=== PATIENT | female | born 1950 | race Native Hawaiian/Other Pacific Islander ===

== ENCOUNTER 2016-04-29 07:30 | Outpatient (CLI) | payer OTHER | END 2016-04-29 07:31 | disposition home or self-care (01) | DX: Z00.00 Encounter for general adult medical examination without abnormal findings (principal) ==

== ENCOUNTER 2016-09-28 08:01 | Outpatient (CLI) | payer OTHER ==
[2016-09-28 13:24] LABS: CREATININE 0.7 mg/dL (0.4-1.0); POTASSIUM 3.4 mmol/L (3.5-5.0)
[2016-09-28 13:37] LABS: HEMOGLOBIN A1C 0.87 g/dL
== END 2016-09-28 08:02 | disposition home or self-care (01) ==
LOC: LAB.WCP 08:01
PROVIDERS: ATTEND Family Medicine
DX: E87.6 Hypokalemia (principal)
CPT/HCPCS: 36415; 80048; 83036

== ENCOUNTER 2016-12-09 08:15 | Outpatient (CLI) | payer OTHER | END 2016-12-09 08:16 | disposition home or self-care (01) | LOC: LAB.WCP 08:15 | PROVIDERS: ATTEND Family Medicine | DX: E11.65 Type 2 diabetes mellitus with hyperglycemia (principal); E55.9 Vitamin D deficiency, unspecified; E78.5 Hyperlipidemia, unspecified | CPT/HCPCS: 36415; 82306; 83036 ==

== ENCOUNTER 2017-01-25 09:43 | Outpatient (CLI) | payer MEDICARE, OTHER | END 2017-01-25 09:44 | disposition home or self-care (01) | LOC: SC 09:43 | PROVIDERS: ATTEND Internal Medicine Pulmonary Disease | DX: G47.33 Obstructive sleep apnea (adult) (pediatric) (principal) | CPT/HCPCS: 99212; 99213 ==

== ENCOUNTER 2017-01-27 10:02 | Outpatient (CLI) | payer OTHER, MEDICARE ==
--- NOTE | 2017-01-28 17:19 | Mammography Report ---
DIGITAL SCREENING MAMMOGRAM: 01/27/2017 CLINICAL INDICATION: A 66-year-old for screening. COMPARISON: 01/2016, 12/2014, 11/2013, 09/2012, 08/2012, 12/2010, 11/2009. TECHNIQUE: Routine CC and MLO projections were obtained of the breasts. The breasts again demonstrate heterogeneously dense fibroglandular parenchyma bilaterally. Coarse an d punctate, typically benign calcifications are present. No suspicious masses, clustered microcalcif ications, or regions of architectural distortion are identified. IMPRESSION: BENIGN FINDINGS. RECOMMENDATION: ROUTINE ANNUAL SCREENING UNLESS OTHERWISE CLINICALLY INDICATED. BIRADS CATEGORY: 2, BENIGN FINDINGS. STANDARD QUALIFYING STATEMENTS 1. This examination was reviewed with the aid of Computed-Aided Detection (CAD). 2. A negative or benign imaging report should not delay biopsy if clinically suspicious findings are present. Consider surgical consultation if warranted. More than 5% of cancers are not identified b y imaging. 3. Dense breasts may obscure an underlying neoplasm. JOB #: [id number] EXT JOB #:[id number]
== END 2017-01-27 10:03 | disposition home or self-care (01) ==
LOC: DI.N 10:02
PROVIDERS: ATTEND Physician Assistant Medical
DX: Z12.31 Encounter for screening mammogram for malignant neoplasm of breast (principal)
CPT/HCPCS: 77067

== ENCOUNTER → 2017-03-15 | Outpatient (CLI) | payer MEDICARE, OTHER ==
[2017-03-15 12:43] LABS: BASOPHILS % (AUTO) 0.6 %; EOSINOPHILS # (AUTO) 0.5 10^3/uL (0.0-0.7); EOSINOPHILS % (AUTO) 6.2 %; HCT - HEMATOCRIT 35.2 % (37.0-47.0); HGB - HEMOGLOBIN 11.3 g/dL (12.0-16.0); LYMPHOCYTES # (AUTO) 1.9 10^3/uL (1.5-3.5); MEAN CORPUSCULAR HEMOGLOBIN 21.4 pg (27.0-31.0); MEAN CORPUSCULAR HGB CONC 32.2 g/dL (32.0-36.0); MEAN CORPUSCULAR VOLUME 66.4 fL (81.0-99.0); MEAN PLATELET VOLUME 9.9 fL (7.9-10.8); MONOCYTES # (AUTO) 0.6 10^3/uL (0.0-1.0); MONOCYTES % (AUTO) 8.3 %; NEUTROPHILS # (AUTO) 4.3 10^3/uL (1.5-6.6); NEUTROPHILS % (AUTO) 58.9 %; RED CELL DISTRIBUTION WIDTH 14.4 % (12.0-15.0); UNCORRECTED WHITE BLOOD COUNT 7.4 x10^3/uL; WHITE BLOOD COUNT 7.4 x10^3/uL (4.8-10.8)
[2017-03-15 12:53] LABS: SLIDE SENT FOR PATH REVIEW? Indicated
[2017-03-15 13:02] LABS: ALBUMIN/GLOBULIN RATIO 1.4 (1.0-2.2); BILIRUBIN,TOTAL 0.5 mg/dL (0.2-1.0); BUN - BLOOD UREA NITROGEN 15 mg/dL (6-20); CARBON DIOXIDE - CO2 27 mmol/L (21-32); CHLORIDE 100 mmol/L (101-111); CHOL/HDL RATIO 2.7 (<4.4); CHOLESTEROL 134 mg/dL; CREATININE 0.6 mg/dL (0.4-1.0); GFR - MDRD 100 (>89); GLUCOSE 92 mg/dL (70-100); HDL CHOLESTEROL 50 mg/dL; LDL/HDL RATIO 1.2 (<4.4); SODIUM 137 mmol/L (135-145); TOTAL PROTEIN 6.7 g/dL (6.7-8.2); TRIGLYCERIDES 125 mg/dL; VLDL CHOLESTEROL 25 mg/dL
[2017-03-15 13:18] LABS: HEMOGLOBIN A1C 0.66 g/dL
[2017-03-15 13:34] LABS: PLATELET ESTIMATE, MANUAL NORMAL (130-450,000) (NORMAL); PLATELET MORPHOLOGY NORMAL APPEARANCE (NORMAL)
[2017-03-15 13:36] LABS: CBC SPECIMEN NUMBER 778316; PATHOLOGIST REVIEW ORDER PATH SLIDE REVIEW
== END ==
LOC: LAB.N 08:00
PROVIDERS: ATTEND Physician Assistant Medical
DX: E78.5 Hyperlipidemia, unspecified (principal); E11.65 Type 2 diabetes mellitus with hyperglycemia; Z51.81 Encounter for therapeutic drug level monitoring; Z79.899 Other long term (current) drug therapy
CPT/HCPCS: 36415; 80053; 80061; 82043; 83036; 84443; 85025

== ENCOUNTER 2017-03-24 11:10 | Outpatient (CLI) | payer MEDICARE, OTHER ==
[2017-03-24 19:36] LABS: CALCIUM 9.6 mg/dL (8.5-10.3); CREATININE 0.5 mg/dL (0.4-1.0); MAGNESIUM 1.7 mg/dL (1.7-2.8); POTASSIUM 3.3 mmol/L (3.5-5.0)
== END 2017-03-24 11:11 ==
LOC: LAB.WCP 11:10
PROVIDERS: ATTEND Physician Assistant Medical
DX: E87.6 Hypokalemia (principal)
CPT/HCPCS: 36415; 80048; 83735

== ENCOUNTER 2017-06-14 17:14 | Outpatient (CLI) | payer MEDICARE, OTHER ==
[2017-06-14 13:17] LABS: HEMOGLOBIN A1C 0.69 g/dL; HEMOGLOBIN A1C % 6.7 % (4.6-6.2)
[2017-06-14 13:22] LABS: ALBUMIN 4.1 g/dL (3.2-5.5); ALBUMIN/GLOBULIN RATIO 1.2 (1.0-2.2); ALKALINE PHOSPHATASE 65 IU/L (42-121); ALT ALANINE AMINOTRANSFERASE 15 IU/L (10-60); AST ASPARTATE AMINOTRANSFERASE 24 IU/L (10-42); BILIRUBIN,TOTAL 0.4 mg/dL (0.2-1.0); BUN - BLOOD UREA NITROGEN 12 mg/dL (6-20); CALCIUM 9.3 mg/dL (8.5-10.3); CARBON DIOXIDE - CO2 29 mmol/L (21-32); CHLORIDE 97 mmol/L (101-111); CHOL/HDL RATIO 3.4 (<4.4); CHOLESTEROL 171 mg/dL; CREATININE 0.6 mg/dL (0.4-1.0); GFR - MDRD 100 (>89); GLUCOSE 156 mg/dL (70-100); HDL CHOLESTEROL 50 mg/dL; LDL CHOLESTEROL,CALCULATED 84 mg/dL; LDL/HDL RATIO 1.7 (<4.4); SODIUM 138 mmol/L (135-145); TOTAL PROTEIN 7.5 g/dL (6.7-8.2); VLDL CHOLESTEROL 37 mg/dL
== END 2017-06-14 17:15 | disposition home or self-care (01) ==
LOC: LAB.N 17:14
PROVIDERS: ATTEND Physician Assistant Medical
DX: E78.5 Hyperlipidemia, unspecified (principal); E11.9 Type 2 diabetes mellitus without complications; Z51.81 Encounter for therapeutic drug level monitoring; Z79.899 Other long term (current) drug therapy
CPT/HCPCS: 36415; 80053; 80061; 83036; 83721

== ENCOUNTER 2017-10-07 08:09 | Outpatient (CLI) | payer MEDICARE, OTHER ==
[2017-10-07 12:37] LABS: ALBUMIN 3.8 g/dL (3.2-5.5); ALBUMIN/GLOBULIN RATIO 1.1 (1.0-2.2); ALKALINE PHOSPHATASE 69 IU/L (42-121); ALT ALANINE AMINOTRANSFERASE 25 IU/L (10-60); AST ASPARTATE AMINOTRANSFERASE 25 IU/L (10-42); BILIRUBIN,TOTAL 0.6 mg/dL (0.2-1.0); BUN - BLOOD UREA NITROGEN 23 mg/dL (6-20); CARBON DIOXIDE - CO2 30 mmol/L (21-32); CHLORIDE 97 mmol/L (101-111); CHOL/HDL RATIO 2.9 (<4.4); CHOLESTEROL 174 mg/dL; CREATININE 0.7 mg/dL (0.4-1.0); GFR - MDRD 84 (>89); GLUCOSE 141 mg/dL (70-100); HDL CHOLESTEROL 60 mg/dL; LDL CHOLESTEROL,CALCULATED 85 mg/dL; LDL/HDL RATIO 1.4 (<4.4); SODIUM 136 mmol/L (135-145); TOTAL PROTEIN 7.3 g/dL (6.7-8.2); VLDL CHOLESTEROL 29 mg/dL
[2017-10-07 12:50] LABS: HB2 TOTAL 13.3 g/dL; HEMOGLOBIN A1C 0.63 g/dL; HEMOGLOBIN A1C % 6.5 % (4.6-6.2)
== END 2017-10-07 23:59 | disposition home or self-care (01) ==
LOC: LAB.WCP 08:09
PROVIDERS: ATTEND Family Medicine
DX: E11.9 Type 2 diabetes mellitus without complications (principal); E78.5 Hyperlipidemia, unspecified
CPT/HCPCS: 36415; 80053; 80061; 83036; 83721; 84443

== ENCOUNTER 2018-01-04 08:00 | Outpatient (CLI) | payer MEDICARE, OTHER ==
[2018-01-04 13:39] LABS: ALBUMIN 3.7 g/dL (3.2-5.5); ALBUMIN/GLOBULIN RATIO 1.4 (1.0-2.2); ALKALINE PHOSPHATASE 79 IU/L (42-121); ALT ALANINE AMINOTRANSFERASE 55 IU/L (10-60); AST ASPARTATE AMINOTRANSFERASE 36 IU/L (10-42); BILIRUBIN,TOTAL 0.7 mg/dL (0.2-1.0); BUN - BLOOD UREA NITROGEN 20 mg/dL (6-20); CALCIUM 8.9 mg/dL (8.5-10.3); CARBON DIOXIDE - CO2 27 mmol/L (21-32); CHLORIDE 101 mmol/L (101-111); CHOL/HDL RATIO 3.3 (<4.4); CHOLESTEROL 180 mg/dL; CREATININE 0.6 mg/dL (0.4-1.0); GFR - MDRD 100 (>89); GLUCOSE 172 mg/dL (70-100); HDL CHOLESTEROL 54 mg/dL; LDL CHOLESTEROL,CALCULATED 96 mg/dL; LDL/HDL RATIO 1.8 (<4.4); SODIUM 138 mmol/L (135-145); TOTAL PROTEIN 6.4 g/dL (6.7-8.2); VLDL CHOLESTEROL 30 mg/dL
[2018-01-04 13:40] LABS: HB2 TOTAL 12.8 g/dL; HEMOGLOBIN A1C 0.67 g/dL; HEMOGLOBIN A1C % 6.9 % (4.6-6.2)
[2018-01-04 13:51] LABS: BASOPHILS # (AUTO) 0.1 10^3/uL (0.0-0.1); BASOPHILS % (AUTO) 0.8 %; EOSINOPHILS # (AUTO) 0.5 10^3/uL (0.0-0.7); EOSINOPHILS % (AUTO) 6.2 %; HGB - HEMOGLOBIN 11.8 g/dL (12.0-16.0); LYMPHOCYTES # (AUTO) 2.3 10^3/uL (1.5-3.5); LYMPHOCYTES % (AUTO) 28.3 %; MEAN CORPUSCULAR HEMOGLOBIN 21.4 pg (27.0-31.0); MEAN CORPUSCULAR HGB CONC 32.1 g/dL (32.0-36.0); MEAN CORPUSCULAR VOLUME 66.6 fL (81.0-99.0); MEAN PLATELET VOLUME 10.4 fL (7.9-10.8); MONOCYTES # (AUTO) 0.6 10^3/uL (0.0-1.0); MONOCYTES % (AUTO) 7.6 %; NEUTROPHILS # (AUTO) 4.6 10^3/uL (1.5-6.6); NEUTROPHILS % (AUTO) 57.1 %; PLT - PLATELET COUNT 225 10^3/uL (130-450); RED BLOOD COUNT 5.55 10^6/uL (4.20-5.40); RED CELL DISTRIBUTION WIDTH 14.5 % (12.0-15.0)
[2018-01-04 14:41] LABS: PLATELET MORPHOLOGY RARE GIANT PLATELETS (NORMAL)
== END 2018-01-04 08:01 | disposition home or self-care (01) ==
LOC: LAB.WCP 08:00
PROVIDERS: ATTEND Family Medicine
DX: E87.6 Hypokalemia (principal); E11.9 Type 2 diabetes mellitus without complications; I10 Essential (primary) hypertension; E78.5 Hyperlipidemia, unspecified
CPT/HCPCS: 36415; 80053; 80061; 83036; 83721; 85025

== ENCOUNTER 2018-02-22 10:04 | Outpatient (CLI) | payer MEDICARE, OTHER ==
--- NOTE | 2018-02-24 11:52 | Mammography Report ---
Reason: SCREENING MAMMO Procedure Date: 02/22/2018 Accession Number: [id number] / [id number] Procedure: MGN - Screening Mammo Dig Bilat CPT Code: FULL RESULT: EXAM: Screening Mammo Dig Bilat DATE: 02/22/2018 10:29 AM CLINICAL HISTORY: 67-year-old female with personal history of early menses and cervical cancer status post hysterectomy and chemoradiation. TECHNIQUE: Bilateral CC and MLO views were obtained. COMPARISON: 01/27/2017, 02/10/2016, 12/26/2014, 12/11/2013. FINDINGS: The breasts demonstrate heterogeneously dense fibroglandular parenchyma bilaterally. Coarse typically benign calcifications are again seen. No suspicious masses, clustered microcalcifications, or regions of architectural distortion are identified. IMPRESSION: Benign findings RECOMMENDATION: Routine annual screening unless otherwise clinically indicated. BIRADS CATEGORY 2: Benign findings STANDARD QUALIFYING STATEMENTS: 1. This examination was reviewed with the aid of Computer-Aided Detection (CAD). 2. A negative or benign imaging report should not delay biopsy if clinically suspicious findings are present. Consider surgical consultation if warrented. More than 5% of cancers are not identified by imaging. 3. Dense breasts may obscure an underlying neoplasm. 4. This examination was reviewed without the aid of 3D breast imaging (tomosynthesis).
== END 2018-02-22 10:05 | disposition home or self-care (01) ==
LOC: DI.N 10:04
DX: Z12.31 Encounter for screening mammogram for malignant neoplasm of breast (principal)
CPT/HCPCS: 77067

== ENCOUNTER 2018-02-22 14:53 | Outpatient (CLI) | payer MEDICARE, OTHER | END 2018-02-22 14:54 | disposition home or self-care (01) | LOC: SC 14:53 | PROVIDERS: ATTEND Nurse Practitioner Family | DX: G47.33 Obstructive sleep apnea (adult) (pediatric) (principal) | CPT/HCPCS: 99214; G0463; 99212 ==

== ENCOUNTER 2018-04-04 10:16 | Outpatient (CLI) | payer MEDICARE, OTHER ==
[2018-04-04 13:51] LABS: ALBUMIN/GLOBULIN RATIO 1.2 (1.0-2.2); ALKALINE PHOSPHATASE 74 IU/L (42-121); ALT ALANINE AMINOTRANSFERASE 39 IU/L (10-60); AST ASPARTATE AMINOTRANSFERASE 32 IU/L (10-42); BILIRUBIN,TOTAL 0.9 mg/dL (0.2-1.0); BUN - BLOOD UREA NITROGEN 15 mg/dL (6-20); CALCIUM 9.2 mg/dL (8.5-10.3); CARBON DIOXIDE - CO2 29 mmol/L (21-32); CHLORIDE 100 mmol/L (101-111); CHOL/HDL RATIO 2.9 (<4.4); CHOLESTEROL 166 mg/dL; CREATININE 0.7 mg/dL (0.4-1.0); GFR - MDRD 84 (>89); GLUCOSE 141 mg/dL (70-100); HDL CHOLESTEROL 57 mg/dL; LDL CHOLESTEROL,CALCULATED 79 mg/dL; LDL/HDL RATIO 1.4 (<4.4); SODIUM 137 mmol/L (135-145); TOTAL PROTEIN 7.3 g/dL (6.7-8.2); VLDL CHOLESTEROL 30 mg/dL
[2018-04-04 14:05] LABS: HB2 TOTAL 12.4 g/dL; HEMOGLOBIN A1C 0.7 g/dL; HEMOGLOBIN A1C % 7.3 % (4.6-6.2)
== END 2018-04-04 23:59 | disposition home or self-care (01) ==
LOC: LAB.WCP 10:16
PROVIDERS: ATTEND Family Medicine
DX: E87.6 Hypokalemia (principal); E11.9 Type 2 diabetes mellitus without complications; E78.5 Hyperlipidemia, unspecified
CPT/HCPCS: 36415; 80053; 80061; 83036; 83721

== ENCOUNTER 2018-07-04 08:00 | Outpatient (CLI) | payer MEDICARE, OTHER ==
[2018-07-04 13:28] LABS: BASOPHILS # (AUTO) 0.1 10^3/uL (0.0-0.1); BASOPHILS % (AUTO) 0.6 %; EOSINOPHILS # (AUTO) 0.6 10^3/uL (0.0-0.7); EOSINOPHILS % (AUTO) 7.5 %; HGB - HEMOGLOBIN 12.4 g/dL (12.0-16.0); LYMPHOCYTES # (AUTO) 2.1 10^3/uL (1.5-3.5); LYMPHOCYTES % (AUTO) 24.3 %; MEAN CORPUSCULAR HEMOGLOBIN 21.1 pg (27.0-31.0); MEAN CORPUSCULAR HGB CONC 31.5 g/dL (32.0-36.0); MEAN CORPUSCULAR VOLUME 66.8 fL (81.0-99.0); MEAN PLATELET VOLUME 10.3 fL (7.9-10.8); MONOCYTES # (AUTO) 0.7 10^3/uL (0.0-1.0); MONOCYTES % (AUTO) 8.2 %; NEUTROPHILS # (AUTO) 5.1 10^3/uL (1.5-6.6); NEUTROPHILS % (AUTO) 59.4 %; PLT - PLATELET COUNT 230 10^3/uL (130-450); RED BLOOD COUNT 5.89 10^6/uL (4.20-5.40); RED CELL DISTRIBUTION WIDTH 14.1 % (12.0-15.0); WHITE BLOOD COUNT 8.6 x10^3/uL (4.8-10.8)
[2018-07-04 13:45] LABS: ALBUMIN 4.2 g/dL (3.2-5.5); ALBUMIN/GLOBULIN RATIO 1.4 (1.0-2.2); ALKALINE PHOSPHATASE 86 IU/L (42-121); ALT ALANINE AMINOTRANSFERASE 43 IU/L (10-60); AST ASPARTATE AMINOTRANSFERASE 33 IU/L (10-42); BILIRUBIN,TOTAL 0.7 mg/dL (0.2-1.0); BUN - BLOOD UREA NITROGEN 23 mg/dL (6-20); CALCIUM 9.4 mg/dL (8.5-10.3); CARBON DIOXIDE - CO2 30 mmol/L (21-32); CHLORIDE 99 mmol/L (101-111); CHOLESTEROL 182 mg/dL; CREATININE 0.6 mg/dL (0.4-1.0); GFR - MDRD 100 (>89); GLUCOSE 184 mg/dL (70-100); HDL CHOLESTEROL 60 mg/dL; LDL CHOLESTEROL,CALCULATED 91 mg/dL; LDL/HDL RATIO 1.5 (<4.4); SODIUM 140 mmol/L (135-145); TOTAL PROTEIN 7.3 g/dL (6.7-8.2); VLDL CHOLESTEROL 31 mg/dL
[2018-07-04 14:20] LABS: HB2 TOTAL 13.8 g/dL; HEMOGLOBIN A1C 0.85 g/dL; HEMOGLOBIN A1C % 7.8 % (4.6-6.2)
== END 2018-07-04 23:59 | disposition home or self-care (01) ==
LOC: LAB.WCP 08:00
PROVIDERS: ATTEND Family Medicine
DX: E87.6 Hypokalemia (principal); E78.5 Hyperlipidemia, unspecified; E11.9 Type 2 diabetes mellitus without complications; F32.9 Major depressive disorder, single episode, unspecified; D56.3 Thalassemia minor
CPT/HCPCS: 36415; 80053; 80061; 82043; 83036; 83721; 84443; 85025

== ENCOUNTER 2018-07-29 08:00 | Outpatient (CLI) | payer MEDICARE, OTHER ==
[2018-07-29 13:07] LABS: CALCIUM 9.2 mg/dL (8.5-10.3); CREATININE 0.7 mg/dL (0.4-1.0)
== END 2018-07-29 23:59 | disposition home or self-care (01) ==
LOC: LAB.WCP 08:00
PROVIDERS: ATTEND Family Medicine
DX: E87.6 Hypokalemia (principal)
CPT/HCPCS: 36415; 80048

== ENCOUNTER 2018-10-06 08:24 | Outpatient (CLI) | payer MEDICARE, OTHER ==
[2018-10-06 14:28] LABS: ALBUMIN 3.9 g/dL (3.2-5.5); ALBUMIN/GLOBULIN RATIO 1.3 (1.0-2.2); ALKALINE PHOSPHATASE 70 IU/L (42-121); ALT ALANINE AMINOTRANSFERASE 44 IU/L (10-60); AST ASPARTATE AMINOTRANSFERASE 35 IU/L (10-42); BILIRUBIN,TOTAL 0.9 mg/dL (0.2-1.0); BUN - BLOOD UREA NITROGEN 17 mg/dL (6-20); CALCIUM 9.1 mg/dL (8.5-10.3); CARBON DIOXIDE - CO2 26 mmol/L (21-32); CHLORIDE 102 mmol/L (101-111); CHOL/HDL RATIO 3.3 (<4.4); CHOLESTEROL 171 mg/dL; CREATININE 0.7 mg/dL (0.4-1.0); GFR - MDRD 83 (>89); GLUCOSE 172 mg/dL (70-100); HDL CHOLESTEROL 52 mg/dL; LDL CHOLESTEROL,CALCULATED 83 mg/dL; LDL/HDL RATIO 1.6 (<4.4); SODIUM 141 mmol/L (135-145); TOTAL PROTEIN 6.9 g/dL (6.7-8.2); VLDL CHOLESTEROL 36 mg/dL
== END 2018-10-06 08:25 | disposition home or self-care (01) ==
LOC: LAB.WCP 08:24
PROVIDERS: ATTEND Family Medicine
DX: E11.9 Type 2 diabetes mellitus without complications (principal)
CPT/HCPCS: 36415; 80053; 80061; 81599; 83036; 83721

== ENCOUNTER 2018-12-27 08:00 | Outpatient (CLI) | payer MEDICARE, OTHER ==
[2018-12-27 12:35] LABS: BASOPHILS # (AUTO) 0.1 10^3/uL (0.0-0.1); BASOPHILS % (AUTO) 0.9 %; EOSINOPHILS # (AUTO) 0.6 10^3/uL (0.0-0.7); EOSINOPHILS % (AUTO) 6.5 %; HGB - HEMOGLOBIN 11.5 g/dL (12.0-16.0); LYMPHOCYTES # (AUTO) 2.7 10^3/uL (1.5-3.5); LYMPHOCYTES % (AUTO) 28.2 %; MEAN CORPUSCULAR HEMOGLOBIN 20.7 pg (27.0-31.0); MEAN CORPUSCULAR VOLUME 68.9 fL (81.0-99.0); MEAN PLATELET VOLUME 12.5 fL (7.9-10.8); MONOCYTES # (AUTO) 0.8 10^3/uL (0.0-1.0); MONOCYTES % (AUTO) 8.1 %; NEUTROPHILS # (AUTO) 5.2 10^3/uL (1.5-6.6); NEUTROPHILS % (AUTO) 55.8 %; PLT - PLATELET COUNT 220 10^3/uL (130-450); RED BLOOD COUNT 5.56 10^6/uL (4.20-5.40); RED CELL DISTRIBUTION WIDTH 14.7 % (12.0-15.0); WHITE BLOOD COUNT 9.4 x10^3/uL (4.8-10.8)
[2018-12-27 12:52] LABS: CHOL/HDL RATIO 2.9 (<4.4); CHOLESTEROL 153 mg/dL; HDL CHOLESTEROL 52 mg/dL; LDL CHOLESTEROL,CALCULATED 72 mg/dL; LDL/HDL RATIO 1.4 (<4.4); VLDL CHOLESTEROL 29 mg/dL
[2018-12-27 14:52] LABS: HB2 TOTAL 11.8 g/dL; HEMOGLOBIN A1C 0.72 g/dL; HEMOGLOBIN A1C % 7.7 % (4.6-6.2)
== END 2018-12-27 23:59 | disposition home or self-care (01) ==
LOC: LAB.WCP 08:00
PROVIDERS: ATTEND Family Medicine
DX: E78.5 Hyperlipidemia, unspecified (principal); E11.9 Type 2 diabetes mellitus without complications; D56.3 Thalassemia minor
CPT/HCPCS: 36415; 80061; 83036; 83721; 85025

== ENCOUNTER 2019-02-07 14:21 | Outpatient (CLI) | payer MEDICARE, OTHER ==
--- NOTE | 2019-02-08 08:22 | Mammography Report ---
Reason: ROUTINE MAMMO Procedure Date: 02/07/2019 Accession Number: [id number] / [id number] Procedure: MGN - Screening Mammo Dig Bilat CPT Code: FULL RESULT: EXAM: Screening Mammo Dig Bilat DATE: 02/07/2019 2:43 PM CLINICAL HISTORY: Screening encounter. History of early menses. TECHNIQUE: (B) - Bilateral CC and MLO views were obtained. Left laterally exaggerated CC views obtained. COMPARISON: 02/22/2018 through 12/20/2009. PARENCHYMAL PATTERN: (D) - The breast(s) demonstrate(s) heterogeneously dense fibroglandular parenchyma. FINDINGS: There are coarse typically benign calcifications. There are no suspicious masses, calcifications, or areas of distortion. IMPRESSION: Benign findings. BI-RADS category 2. RECOMMENDATION: (ANNUAL) - Recommend routine annual screening mammography. BI-RADS CATEGORY: (2) - Benign Findings. STANDARD QUALIFYING STATEMENTS: 1. This examination was not reviewed with the aid of Computer-Aided Detection (CAD). 2. A negative or benign imaging report should not preclude biopsy if clinically suspicious findings are present. 3. Dense breasts may obscure an underlying neoplasm. 4. This examination was reviewed without the aid of 3D breast imaging (tomosynthesis).
== END 2019-02-07 14:22 | disposition home or self-care (01) ==
LOC: DI.N 14:21
DX: Z12.31 Encounter for screening mammogram for malignant neoplasm of breast (principal)
CPT/HCPCS: 77067

== ENCOUNTER 2019-03-29 08:00 | Outpatient (CLI) | payer MEDICARE, OTHER ==
[2019-03-29 13:23] LABS: ALBUMIN 3.8 g/dL (3.2-5.5); ALBUMIN/GLOBULIN RATIO 1.1 (1.0-2.2); BILIRUBIN,TOTAL 0.8 mg/dL (0.2-1.0); CALCIUM 9.3 mg/dL (8.5-10.3); CREATININE 0.7 mg/dL (0.4-1.0); TOTAL PROTEIN 7.4 g/dL (6.7-8.2)
[2019-03-29 13:28] LABS: BASOPHILS # (AUTO) 0.1 10^3/uL (0.0-0.1); BASOPHILS % (AUTO) 0.8 %; EOSINOPHILS # (AUTO) 0.5 10^3/uL (0.0-0.7); EOSINOPHILS % (AUTO) 6.2 %; HGB - HEMOGLOBIN 12.5 g/dL (12.0-16.0); LYMPHOCYTES % (AUTO) 25.2 %; MEAN CORPUSCULAR HEMOGLOBIN 20.3 pg (27.0-31.0); MEAN CORPUSCULAR HGB CONC 29.4 g/dL (32.0-36.0); MEAN CORPUSCULAR VOLUME 69.1 fL (81.0-99.0); MEAN PLATELET VOLUME 12.3 fL (7.9-10.8); MONOCYTES # (AUTO) 0.7 10^3/uL (0.0-1.0); MONOCYTES % (AUTO) 9.2 %; NEUTROPHILS # (AUTO) 4.5 10^3/uL (1.5-6.6); NEUTROPHILS % (AUTO) 57.8 %; PLT - PLATELET COUNT 219 10^3/uL (130-450); RED BLOOD COUNT 6.15 10^6/uL (4.20-5.40); RED CELL DISTRIBUTION WIDTH 16.1 % (12.0-15.0); WHITE BLOOD COUNT 7.9 x10^3/uL (4.8-10.8)
== END 2019-03-29 23:59 | disposition home or self-care (01) ==
LOC: LAB.WCP 08:00
PROVIDERS: ATTEND Family Medicine
DX: R59.0 Localized enlarged lymph nodes (principal)
CPT/HCPCS: 36415; 80053; 85025

== ENCOUNTER 2019-04-05 08:43 | Outpatient (CLI) | payer MEDICARE, OTHER ==
[2019-04-05] MEDS ORDERED: IOVERSOL 320 100 ML VIAL IVP ONE ×2 (08:46→14:24)
--- NOTE | 2019-04-05 14:42 | CT Report ---
Reason: CERVICAL LYMADENOPATHY, HX CERVICAL CA. Procedure Date: 04/05/2019 Accession Number: [id number] / [id number] Procedure: CT - SOFT TISSUE NECK W CPT Code: Final Report FULL RESULT: EXAM: CT SOFT TISSUE NECK WITH CONTRAST. EXAM DATE: 04/05/2019 09:24 AM. HISTORY: Cervical lymphadenopathy, history of cervical carcinoma. COMPARISONS: None. TECHNIQUE: Routine soft tissue neck CT protocol with contrast. Reconstructions: Coronal and sagittal. IV contrast: OPTI 320 80ML. In accordance with CT protocol optimization, one or more of the following dose reduction techniques were utilized for this exam: automated exposure control, adjustment of mA and/or KV based on patient size, or use of iterative reconstructive technique. FINDINGS: Visualized Intracranial Contents: Unremarkable. Orbits: Symmetric and unremarkable. Sinuses: Visualized paranasal sinuses and mastoid air cells are clear. Oral cavity: The visualized oral cavity is unremarkable. The floor of the mouth is symmetric. Pharynx: Asymmetric soft tissue fullness is seen in the left palatine tonsil compared to the right. Effacement of the left glossopalatine fold is seen. Punctate calcifications are seen in the palatine tonsils bilaterally. Mild soft tissue fullness is seen in the adenoids within the posterior nasopharynx. The mill machinist spaces and pterygopalatine fossa are unremarkable. The infratemporal fossa, parapharyngeal spaces, and retropharyngeal space are unremarkable. The base of the tongue is symmetric and unremarkable. The airway is patent. Larynx: Larynx and supraglottic airway are patent without mass lesion. Vocal cords are symmetric. The visualized trachea is unremarkable. Parotid and Submandibular Glands: Symmetric and unremarkable. Lymph Nodes: There are multiple enlarged homogeneous soft tissue nodules posterolateral to the left carotid space and internal jugular vein, consistent with lymphadenopathy. These are seen in the posterior triangle of the upper neck in level 5A. Involvement of level 2B, level 3, and level 4 lymph nodes is seen as well. These measure up to 26 mm in size. No hypodensity is seen to suggest necrosis or abscess. Soft tissues: Soft tissues are unremarkable. No fascial plane inflammation or rim-enhancing fluid collection is seen. Vascular Structures: Patent and unremarkable. Thyroid Gland: Normal. Lung: Small patchy wedge-shaped focus of infiltrate is seen posteriorly in the left upper lobe of the lung abutting the major fissure. Bones: No evidence of acute fracture or malalignment. Linear calcification is seen posterior to cervical vertebrae from C3-C7. This does not span the disk levels. This could be secondary to ossification of posterior longitudinal ligament. Mild spondylosis with degenerative disk and uncovertebral change is seen from C3-C4 through C6-C7. Anterolateral osteophyte formation is also seen at C7-T1 greater to the left. Other: None. IMPRESSION: 1. Soft tissue fullness in the palatine tonsils greater on the left and within the adenoids. Findings could be secondary to enlarged lymphoid tissue. Mass lesion in the left palatine tonsil effacing the glossopalatine fold is not excludable and correlation with direct visualization would be of value. 2. Marked lymphadenopathy involving left cervical jugulodigastric chain. Findings suggest metastatic disease or lymphoma. Reactive inflammatory or granulomatous process is considered less likely. 3. Spondylosis in the cervical spine as noted above. Calcification is seen posterior to cervical vertebrae suggestive of OPLL (ossification of posterior longitudinal ligament). RADIA
== END 2019-04-05 08:44 | disposition home or self-care (01) ==
LOC: DI 08:43
PROVIDERS: ATTEND Family Medicine
DX: R59.0 Localized enlarged lymph nodes (principal); M47.812 Spondylosis without myelopathy or radiculopathy, cervical region; M50.31 Other cervical disc degeneration, high cervical region; Z85.41 Personal history of malignant neoplasm of cervix uteri
CPT/HCPCS: 70491; Q9967

== ENCOUNTER 2019-04-24 06:03 | Day surgery (SDC) | payer MEDICARE, OTHER ==
[2019-04-24] MEDS ORDERED: CEFAZOLIN SODIUM IN 0.9 % NACL 2 GM/100 ML BAG IV ONE (06:33)
[2019-04-24] MEDS ORDERED: LACTATED RINGERS 1,000 ML IV ONE ×2 (06:49→09:50)
[2019-04-24] MEDS ORDERED: BUPIVACAINE 0.5% PF 30 ML VIAL ONE (07:14)
[2019-04-24] MEDS ORDERED: LIDOCAINE 1% 50 ML MDV ONE (07:14)
--- NOTE | 2019-04-24 07:15 | ANESTHESIA ---
Pre-Anesthesia VS, & Labs - Diagnosis Posterior cervical lymph node - Procedure Excise cervical lymph node Vital Signs: Temp Pulse Resp BP Pulse Ox 36.9 C 65 18 178/72 H 99 04/24/19 06:29 04/24/19 06:29 04/24/19 06:29 04/24/19 06:29 04/24/19 06:29 Height 4 ft 11 in Weight (kg) 87 kg Body Mass Index 39.4 - NPO >8 hours, Other (two oz water before 0400) - Is Patient ?: No - Lab Results Current Lab Results: Laboratory Tests 04/24/19 06:49: POC Whole Bld Glucose 175 H Lab results reviewed: Yes Home Medications and Allergies Home Medications: Ambulatory Orders Albuterol Sulfate [Proair Hfa Inhaler] 1 - 2 puffs INH Q4H PRN 04/17/19 Calcium Carbonate [Calcium] 600 mg PO BID 04/17/19 Montelukast Sodium 10 mg PO DAILY 04/17/19 Omeprazole 20 mg PO DAILY 04/17/19 Sitagliptin Phos/Metformin HCl [Janumet Xr 100-1,000 mg Tablet] 1 each PO DAILY 04/17/19 Aspirin [Aspirin EC] 81 mg PO DAILY 11/15/14 Cholecalciferol (Vitamin D3) [Vitamin D] 2,000 unit PO DAILY 11/15/14 Glipizide [Glipizide Xl] 10 mg PO BID 11/15/14 Hydrochlorothiazide 25 mg PO DAILY 11/15/14 Irbesartan [Avapro] 150 mg PO DAILY 11/15/14 [place]-3 Fatty Acids/Fish Oil [Fish Oil 1,000 mg Capsule] 360 mg PO DAILY 11/15/14 Simvastatin 20 mg PO DAILY 11/15/14 atenoloL [Atenolol] 100 mg PO DAILY 11/15/14 Ascorbic Acid [Vitamin C] 1,000 mg PO DAILY 12/26/14 Albuterol Sulfate [Proair Hfa Inhaler] 1 - 2 puffs INH Q4H PRN 04/17/19 Calcium Carbonate [Calcium] 600 mg PO BID 04/17/19 Montelukast Sodium 10 mg PO DAILY 04/17/19 Omeprazole 20 mg PO DAILY 04/17/19 Sitagliptin Phos/Metformin HCl [Janumet Xr 100-1,000 mg Tablet] 1 each PO DAILY 04/17/19 Allergies/Adverse Reactions: Allergies Allergy/AdvReac Type Severity Reaction Status Date / Time aspirin AdvReac Cramps Verified 11/15/14 13:38 lisinopril AdvReac cough Verified 04/17/19 10:08 metformin AdvReac diarrhea Verified 04/17/19 10:06 venom-honey bee AdvReac Rash Verified 11/15/14 13:38 [bee venom (honey bee)] Anes History & Medical History - Anesthetic History Anesthesia Complications: reports: Other-see comment (PONV) Family history of Anesthesia Complications: Denies Family history of Malignant Hyperthermia: Denies - Medical History Cardiovascular: reports: Hypertension, High cholesterol, Murmur Pulmonary: reports: Asthma, Sleep apnea, CPAP use Gastrointestinal: reports: None Urinary: reports: None Neuro: reports: None Musculoskeletal: reports: Osteoarthritis Endocrine/Autoimmune: reports: Type 2 diabetes Blood Disorders: reports: None Skin: reports: None Smoking Status: Never smoker Psychosocial: reports: No issues indicated - Surgical History General: Cholecystectomy Eyes Ears Nose Throat (EENT): Other Gynecologic: Tubal ligation, Hysterectomy Orthopedic: Knee replacement Exam General: Alert Dental: WNL Mouth Opening: Greater than 4 Fingerbreadths Neck Mobility: Normal Mallampati classification: II Thyromental Distance: 4-6 cm Respiratory: Lungs clear Cardiovascular: Regular rate Plan Anesthesia Type: General Consent for Procedure(s) Verified and Reviewed: Yes Code Status: Attempt Resuscitation ASA classification: 3-Severe systemic disease Is this case an emergency?: No
[2019-04-24] MEDS ORDERED: SCOPOLAMINE PATCH TOP ONE (07:27)
[2019-04-24] MEDS ORDERED: LIDOCAINE-MPF 1% 30 ML VIAL ONE (07:28)
[2019-04-24] MEDS ORDERED: fentaNYL 100 MCG/2 ML VIAL IVP ONE (07:29)
[2019-04-24] MEDS ORDERED: GLYCOPYRROLATE 1 MG/5 ML VIAL IVP ONE (07:29)
[2019-04-24] MEDS ORDERED: NEOSTIGMINE 1 MG/1 ML 10 ML MDV IVP ONE (07:29)
[2019-04-24] MEDS ORDERED: MIDAZOLAM 2 MG/2 ML VIAL IVP ONE (07:29)
[2019-04-24] MEDS ORDERED: ROCURONIUM 50 MG/5 ML VIAL IVP ONE (07:29)
[2019-04-24] MEDS ORDERED: PROPOFOL 200 MG/20 ML VIAL IVP ONE (07:29)
[2019-04-24] MEDS ORDERED: ePHEDrine 50 MG/ML VIAL IVP ONE (07:29)
[2019-04-24] MEDS ORDERED: DEXAMETHASONE 4 MG/ML VIAL IVP ONE (07:29)
[2019-04-24] MEDS ORDERED: ONDANSETRON 4 MG/2 ML VIAL IVP ONE (07:29)
[2019-04-24] MEDS ORDERED: LIDOCAINE-MPF 2% 5 ML VIAL IM ONE (07:29)
[2019-04-24] MEDS ORDERED: LIDOCAINE 1% 50 ML MDV SUBQ ONE ×2 (08:08)
[2019-04-24] MEDS ORDERED: BUPIVACAINE 0.5% PF 30 ML VIAL INFIL ONE ×2 (08:09)
[2019-04-24] MEDS ORDERED: HYDROcod/ACETAM 5/325 MG TABLET PO PRN (08:56)
[2019-04-24] MEDS ORDERED: ONDANSETRON 4 MG/2 ML VIAL IVP PRN (08:56)
[2019-04-24] MEDS ORDERED: HYDROmorphone 0.5 MG/0.5 ML SYRINGE IVP PRN (08:56)
[2019-04-24] MEDS ORDERED: LACTATED RINGERS 1,000 ML IV SCH (09:00)
--- NOTE | 2019-04-24 09:01 | IMMEDIATE POSTOPERATIVE NOTE ---
Immediate Postoperative Note - Procedure Note Procedure Date: 04/24/19 Pre-Op Diagnosis: Left posterior cervical lymphadenopathy Procedure: Excision of above node Post-Op Diagnosis: Same Primary Surgeon: Luis Home Care Manager: GLENYS Teresa Anesthesia Type: General ET tube, Local Findings: Friable lymph node Complications: No complications Estimated Blood Loss (in cc): 5
--- NOTE | 2019-04-24 09:27 | OPERATIVE REPORT ---
DATE OF SERVICE: 04/24/2019 Physician: Crow Smith DO PREOPERATIVE DIAGNOSIS: Lymphadenopathy, left posterior cervical lymph node chain. POSTOPERATIVE DIAGNOSIS: Lymphadenopathy, left posterior cervical lymph node chain. Pathology report pending. PROCEDURE: Excisional biopsy, left posterior cervical lymph node. SURGEON: Dr. Smith. ANESTHESIA PROVIDER: Paras Teresa CRNA. TYPE OF ANESTHESIA: General endotracheal tube with local assist. ESTIMATED BLOOD LOSS: 5 mL FINDINGS: Patient's lymph node was very friable and had very poor tissue integrity. It was mobile, however. COMPLICATIONS: None. CONDITION: Stable upon transport to recovery. HISTORY: Patient is a 68-year-old white female with a several week history of enlargement and harden ing of a subcutaneous soft tissue mass, left posterior cervical region. Examination revealed this to be a very firm lymph node. She was scheduled for biopsy. DESCRIPTION OF PROCEDURE: Patient was taken to the operating room and under the above-mentioned anes thetic, prepped and draped in the usual sterile manner. Following a timeout, a transverse incision w as made over the node and carried down through the skin and subcutaneous tissues and care was taken t o preserve the posterior auricular nerve and a minimal disruption of the sternocleidomastoid muscle. Eventually, the node was mobilized and a suture placed to assist in mobilization and dissection, but the suture pulled right through and the node was found to be very friable and basically mushy and msith d very poor turgor. It was removed in piecemeal fashion. Hemostasis was achieved through the use of electrocautery and Surgicel. Closure was accomplished with muscle reapproximation. 3-0 undyed Vicr yl, subcutaneous layer approximated with undyed subcuticular 3-0 Vicryl and the skin margins joined w ith a running undyed subcuticular 4-0 Monocryl, Dermabond over that and the patient transported to [facility] in stable condition. TD: 04/24/2019 09:09
[2019-04-24] MEDS ORDERED: ACETAMINOPHEN 1,000 MG/100 ML 100 ML IV ONE (09:30)
[2019-04-24 11:50] VITALS: BP 136/70
== END 2019-04-24 06:04 | disposition home or self-care (01) ==
LOC: SDS 06:03
PROVIDERS: ATTEND Surgery
PROC: 07B20ZX Excision of Left Neck Lymphatic, Open Approach, Diagnostic (ICD-10-PCS; principal; 2019-04-24 07:30)
DX: R59.0 Localized enlarged lymph nodes (principal); E11.9 Type 2 diabetes mellitus without complications; I10 Essential (primary) hypertension; E78.5 Hyperlipidemia, unspecified; R01.1 Cardiac murmur, unspecified; J45.909 Unspecified asthma, uncomplicated; G47.33 Obstructive sleep apnea (adult) (pediatric); E66.9 Obesity, unspecified; Z68.38 Body mass index [BMI] 38.0-38.9, adult; Z96.659 Presence of unspecified artificial knee joint; Z79.51 Long term (current) use of inhaled steroids; Z79.82 Long term (current) use of aspirin; Z79.84 Long term (current) use of oral hypoglycemic drugs; Z85.41 Personal history of malignant neoplasm of cervix uteri
CPT/HCPCS: 38510; 88307; 88341; 88342; 88360; J0131; J0690; J3490; J7120

== ENCOUNTER 2019-05-22 13:48 | Outpatient (CLI) | payer MEDICARE, OTHER ==
[2019-05-22 19:06] LABS: CREATININE 0.8 mg/dL (0.4-1.0)
== END 2019-05-22 23:59 | disposition home or self-care (01) ==
LOC: LAB.WCP 13:48
PROVIDERS: ATTEND Surgery
DX: R59.0 Localized enlarged lymph nodes (principal)
CPT/HCPCS: 36415; 82565

== ENCOUNTER 2019-05-24 10:17 | Outpatient (CLI) | payer MEDICARE, OTHER ==
[2019-05-24] MEDS ORDERED: IOVERSOL 320 100 ML VIAL IVP ONE (10:31)
[2019-05-24] MEDS ORDERED: IOVERSOL 320 50 ML VIAL ONE (10:31)
--- NOTE | 2019-05-24 13:43 | CT Report ---
Reason: CERVICAL LYMPHADENOPATHY Procedure Date: 05/24/2019 Accession Number: [id number] / [id number] Procedure: CT - SOFT TISSUE NECK W CPT Code: Final Report FULL RESULT: EXAM: CT SOFT TISSUE NECK WITH CONTRAST. EXAM DATE: 05/24/2019 12:13 PM. HISTORY: Cervical lymphadenopathy. COMPARISONS: NECK SOFT TISSUE W/ 04/05/2019 9:13 AM. TECHNIQUE: Routine soft tissue neck CT protocol with contrast. Reconstructions: Coronal and sagittal. IV contrast: Optiray 320 [address] mL. In accordance with [address] protocol optimization, one or more of the following dose reduction techniques were utilized for this exam: automated exposure control, adjustment of mA and/or KV based on patient size, or use of iterative reconstructive technique. FINDINGS: Clear lung apices. Stable pattern of multilevel hypertrophic degenerative cervical spinal spondylosis. There appears to be accompanying multilevel posterior longitudinal ligament thickening and ossification contributing to spinal stenosis. No acute sinus or mastoid fluid opacity. No focal intracranial lesion identified. Stable amorphous prominence of the palatine tonsils which contain numerous punctate calcifications, not significantly changed from prior. Persistent mild nonspecific amorphous soft tissue prominence in the nasopharynx. Unremarkable appearance of the epiglottis. Grossly symmetric vocal cords. Otherwise stable unremarkable contours of the pharynx and larynx. Unremarkable appearance of the parotid and submandibular salivary glands and thyroid gland. Persistent but significantly improved cervical lymphadenopathy. A dominant left level 2 node is now 13 x 19 mm that previously was 18 x 26 mm. Another dominant left posterior level 2 node is 10 mm that was previously 27 mm AP. Just anterior to this is another 8 mm node that was previously 17 mm. Below this on the left at the level of the hyoid bone is another deep jugular chain node that has shrunk considerably, now 11 mm, previously 21 mm. Medial left clavicular fossa node now measures 10 mm, previously 15 mm. No progressive adenopathy in the neck. One of the larger right neck nodes at the level of the hyoid bone was previously 6 mm is now 5 mm. No new mass or progressive adenopathy demonstrated in the neck. Contrast opacification of the internal jugular veins is present bilaterally. IMPRESSION: 1. Persistent but significantly improved cervical lymphadenopathy, predominantly on the left. 2. No evidence for new or progressive soft tissue abnormality in the neck. 3. Persistent prominence/hypertrophy of the tonsils and adenoids. RADIA
--- NOTE | 2019-05-25 08:51 | CT Report ---
Reason: CERVICAL LYMPHADENOPATHY Procedure Date: 05/24/2019 Accession Number: [id number] / [id number] Procedure: CT - CHEST W CPT Code: Final Report FULL RESULT: EXAM: CT CHEST EXAM DATE: 05/24/2019 12:13 PM. CLINICAL HISTORY: Cervical lymphadenopathy. COMPARISONS: None. TECHNIQUE: Routine helical CT imaging was performed through the chest. IV contrast: None. Reconstructions: Coronal and sagittal. In accordance with CT protocol optimization, one or more of the following dose reduction techniques were utilized for this exam: automated exposure control, adjustment of mA and/or KV based on patient size, or use of iterative reconstructive technique. FINDINGS: Lungs/Pleura: A focal groundglass opacity is noted in the left upper lobe of the lung (image 104 of series 3). Linear changes are noted in the lung bases. There is no pleural effusion or pneumothorax seen. Mediastinum: There is atherosclerosis of the aorta without evidence of aneurysmal dilatation or dissection. Extensive calcified plaque is seen involving the coronary arteries. There is an enlarged right axillary lymph node. It measures 1.4 cm in short axis dimension (image 36 of series 2). Bones: There are degenerative changes of the thoracic spine. Visualized Abdomen: The visualized upper abdominal organs are without evidence of an enhancing mass. There are postoperative changes consistent with a cholecystectomy. Other: None. IMPRESSION: Enlarged right axillary lymph node. Small focal nonspecific groundglass opacity in the left upper lobe of the lung. This may be secondary to pneumonia or a pneumonitis. Atherosclerosis of the aorta and coronary arteries with extensive calcified plaque involving the coronary arteries. RADIA
--- NOTE | 2019-05-25 09:11 | CT Report ---
Reason: CERVICAL LYMPHADENOPATHY Procedure Date: 05/24/2019 Accession Number: [id number] / [id number] Procedure: CT - Abdomen/Pelvis W CPT Code: Final Report FULL RESULT: EXAM: CT ABDOMEN AND PELVIS EXAM DATE: 05/24/2019 12:13 PM. CLINICAL HISTORY: Cervical lymphadenopathy. COMPARISONS: None. TECHNIQUE: Routine helical CT imaging was performed through the abdomen and pelvis. IV contrast: Optiray 320 100 mL. Enteric contrast: No. Reconstructions: Coronal and sagittal. In accordance with CT protocol optimization, one or more of the following dose reduction techniques were utilized for this exam: automated exposure control, adjustment of mA and/or KV based on patient size, or use of iterative reconstructive technique. FINDINGS: Lung Bases: Unremarkable. Solid Organs: The liver is without evidence of mass. There are postoperative changes consistent with a cholecystectomy. The spleen, pancreas, and adrenal glands are without evidence of a mass. Kidneys are without evidence of a mass or hydronephrosis. Peritoneal Cavity/Bowel: There are no dilated loops of bowel to suggest the presence of an obstruction. There is no CT evidence of appendicitis. A few diverticuli are seen involving the sigmoid colon. There is no evidence of diverticulitis. Pelvic Organs: There is no periaortic, mesenteric or pelvic lymphadenopathy. Surgical clips are noted adjacent to the aorta. Vasculature: There is atherosclerosis of the aorta and iliac arteries. There is no evidence of an abdominal aortic aneurysm. Bones: Degenerative changes of the visualized thoracic and lumbar spine are noted. Other: None. IMPRESSION: No evidence of lymphadenopathy within the abdomen or pelvis. Atherosclerosis of the aorta and iliac arteries. Mild diverticulosis of the sigmoid colon without evidence of diverticulitis. RADIA
== END 2019-05-24 10:18 | disposition home or self-care (01) ==
LOC: DI 10:17
PROVIDERS: ATTEND Internal Medicine Gastroenterology
DX: R59.0 Localized enlarged lymph nodes (principal); R91.8 Other nonspecific abnormal finding of lung field; J35.3 Hypertrophy of tonsils with hypertrophy of adenoids; K57.30 Diverticulosis of large intestine without perforation or abscess without bleeding; I70.0 Atherosclerosis of aorta
CPT/HCPCS: 70491; 71260; 74177; Q9967

== ENCOUNTER 2019-08-03 17:04 | Outpatient (CLI) | payer MEDICARE, OTHER ==
--- NOTE | 2019-08-03 15:28 | SLEEP CARE CONSULTATION ---
Information from patient questionnaire entered by Eveline Samano. I have reviewed and concur with the information entered by Eveline Samano. This document represents the service I personally performed and the decisions made by me, Amy Hernandez, RN, MSN, [employer]. History of Present Illness Service Date and Time: 08/03/2019 1500 Previous diagnosis: Very Severe, Obstructive Sleep Apnea-Hypopnea Syndrome AHI: 68.9 Reason for follow up: annual Equipment type: CPAP Equipment obtained from: [employer] (having difficulty getting supplies despite repeated attempts) Mask style: Nasal (dreamwear) Backup mask available: Yes Last cushion change: 2 weeks ago Prior sleep studies: Yes Type of Sleep Study: Polysomnography CPAP Compliance Data - Data Reviewed with Patient Average duration of nightly device use: 6h 53m Compliance rate %: 81.7 Current pressure setting (cmH2O): 5-11 Humidity settin Heated hose settin Average residual AHI: 3.4 Average large leak: 2m 35s Subjective Missed days of use due to: reports: travel (wtih her Transend CPAP device) Patient concerns: reports: condensation in mask/hose (unable to change the humidity), nasal congestion (seasonal allergies - no problems ). denies: aerophagia, mask discomfort, air blowing in eyes, mask leak noise, dry mouth, nose, throat, epistaxis, other Observed to snore while using device: No Current pressure setting perceived as: comfortable On therapy, patient: reports: sleeping better, awakening more refreshed, being more awake and alert during the day, more rested overall, other. denies: drowsiness while driving Initial [place] Sleepiness Scale score: 8 Current [place] Sleepiness Scale score: 4 Physical Exam Height: 4 ft 11.75 in Impression and Plan 1. Obstructive Sleep Apnea-Hypopnea Syndrome, very severe, with good treatment compliance and good apnea control. On CPAP therapy, the patient has better sleep quality and is more rested overall. Patient is very pleased with benefit of CPAP use. In fact she bought a travel CPAP so she could use it easier in travel. However, she is having difficulty getting supplies from [employer] despite repeated attempts. Patient was notified that another DME can be used. I will have my venue coordinator inform of DME options. A DWO prescription will then be made. Patient advised to contact this office if further supply problems. For her questions about CPAP pure culture operator, I advised her of the recent FDA warnings and to check its site for guidelines. To reduce condensation, I instructed her how to increase heated hose and that instructions can be found in her CPAP manual or on [employer] site. I also advised her to try a couple of sprays of saline nasal spray to clear nose if nasal congestion makes it hard to breathe through her nose. Patient's apnea severity and rationale for treatment to reduce apnea, improve sleep quality and reduce cardiovascular and cerebrovascular events was reviewed. * Continue CPAP pressure at 5-10 cmH2O * Transfer to new DME * Adjust heated hose. * Notify me if snoring with mask or feeling that the pressure is too much or too little * Call this office if any problems using CPAP * Return for follow up in 1 year , or sooner if concerns arise Visit Type: Telehealth Phone (to minimize the risk of Covid-19 exposure, the patient has agreed to this telehealth phone visit and to bill her insurance.) Location of Provider: Home Patient agrees and consents to this telehealth visit type: Yes Time Spent with Patient (minutes): 10 Provider Statement: I spent 100% of the Telehealth Phone Call with the patient with greater than 50% spent counseling the patient and coordination of care.
== END 2019-08-03 17:05 | disposition home or self-care (01) ==
LOC: SC 17:04
PROVIDERS: ATTEND Nurse Practitioner Family
DX: G47.33 Obstructive sleep apnea (adult) (pediatric) (principal)

== ENCOUNTER 2019-08-14 09:14 | Outpatient (CLI) | payer MEDICARE, OTHER ==
[2019-08-14 13:19] LABS: BASOPHILS # (AUTO) 0.1 10^3/uL (0.0-0.1); BASOPHILS % (AUTO) 0.6 %; EOSINOPHILS # (AUTO) 0.9 10^3/uL (0.0-0.7); EOSINOPHILS % (AUTO) 9.1 %; HGB - HEMOGLOBIN 12.1 g/dL (12.0-16.0); LYMPHOCYTES # (AUTO) 2.6 10^3/uL (1.5-3.5); LYMPHOCYTES % (AUTO) 27.5 %; MEAN CORPUSCULAR HEMOGLOBIN 21.2 pg (27.0-31.0); MEAN CORPUSCULAR HGB CONC 30.8 g/dL (32.0-36.0); MEAN CORPUSCULAR VOLUME 68.9 fL (81.0-99.0); MEAN PLATELET VOLUME 11.9 fL (7.9-10.8); MONOCYTES # (AUTO) 0.6 10^3/uL (0.0-1.0); MONOCYTES % (AUTO) 6.7 %; NEUTROPHILS # (AUTO) 5.2 10^3/uL (1.5-6.6); NEUTROPHILS % (AUTO) 55.3 %; PLT - PLATELET COUNT 224 10^3/uL (130-450); RED CELL DISTRIBUTION WIDTH 14.3 % (12.0-15.0); WHITE BLOOD COUNT 9.3 x10^3/uL (4.8-10.8)
[2019-08-14 13:42] LABS: PLATELET ESTIMATE, MANUAL NORMAL (130-450,000) (NORMAL); PLATELET MORPHOLOGY NORMAL APPEARANCE (NORMAL)
[2019-08-14 13:51] LABS: HB2 TOTAL 12.2 g/dL; HEMOGLOBIN A1C 0.88 g/dL; HEMOGLOBIN A1C % 8.8 % (4.6-6.2)
[2019-08-14 13:55] LABS: ALBUMIN 3.8 g/dL (3.2-5.5); ALBUMIN/GLOBULIN RATIO 1.2 (1.0-2.2); ALKALINE PHOSPHATASE 78 IU/L (42-121); ALT ALANINE AMINOTRANSFERASE 54 IU/L (10-60); AST ASPARTATE AMINOTRANSFERASE 41 IU/L (10-42); BILIRUBIN,TOTAL 0.8 mg/dL (0.2-1.0); BUN - BLOOD UREA NITROGEN 18 mg/dL (6-20); CALCIUM 8.7 mg/dL (8.5-10.3); CARBON DIOXIDE - CO2 25 mmol/L (21-32); CHLORIDE 97 mmol/L (101-111); CHOL/HDL RATIO 3.5 (<4.4); CHOLESTEROL 173 mg/dL; CREATININE 0.6 mg/dL (0.4-1.0); GLUCOSE 208 mg/dL (70-100); HDL CHOLESTEROL 49 mg/dL; LDL CHOLESTEROL,CALCULATED 90 mg/dL; LDL/HDL RATIO 1.8 (<4.4); SODIUM 137 mmol/L (135-145); TOTAL PROTEIN 7.1 g/dL (6.7-8.2); VLDL CHOLESTEROL 34 mg/dL
== END 2019-08-14 23:59 | disposition home or self-care (01) ==
LOC: LAB.WCP 09:14
PROVIDERS: ATTEND Family Medicine
DX: E11.9 Type 2 diabetes mellitus without complications (principal)
CPT/HCPCS: 36415; 80053; 80061; 83036; 83721; 84443; 85025

== ENCOUNTER 2019-11-02 08:21 | Outpatient (CLI) | payer MEDICARE, OTHER ==
[2019-11-02 11:48] LABS: CALCIUM 9.2 mg/dL (8.5-10.3); CREATININE 0.7 mg/dL (0.4-1.0)
[2019-11-02 12:02] LABS: HB2 TOTAL 12.6 g/dL; HEMOGLOBIN A1C 0.73 g/dL; HEMOGLOBIN A1C % 7.5 % (4.6-6.2)
== END 2019-11-02 23:59 | disposition home or self-care (01) ==
LOC: LAB.WCP 08:21
PROVIDERS: ATTEND Family Medicine
DX: E11.9 Type 2 diabetes mellitus without complications (principal)
CPT/HCPCS: 36415; 80048; 83036

== ENCOUNTER 2020-01-29 09:59 | Outpatient (CLI) | payer MEDICARE, OTHER ==
--- NOTE | 2020-01-30 08:44 | Mammography Report ---
BILATERAL DIGITAL SCREENING MAMMOGRAM 3D/2D: 01/29/2020 CLINICAL: Routine screening. Comparison is made to exams dated: 02/07/2019 mammogram, 02/22/2018 mammogram, 01/27/2017 mammogram, 02/10/2016 mammogram, 09/25/2019 CT, and 05/24/2019 CT - [facility]. The tissue of santos th breasts is heterogeneously dense. This may lower the sensitivity of mammography. There is a 2.3 cm oval equal density lymph node in the right breast posterior depth superior region s een on the mediolateral oblique view only. This is more prominent and increased in size compared to previous mammograms and correlate with abnormally enlarged right axillary lymph node seen on comparis on CT of 05/24/19. No other significant masses, calcifications, or other findings are seen in either breast. IMPRESSION: INCOMPLETE: NEEDS ADDITIONAL IMAGING EVALUATION The 2.3 cm oval equal density lymph node in the right breast is indeterminate. A diagnostic mammogra m and an ultrasound are recommended. This exam was interpreted at Station ID: [id number]. NOTE: For mammograms, a report in lay terms will be sent to the patient. Approximately 15% of breast malignancies will not be visualized mammographically. In the management of a palpable breast mass, a negative mammogram must not discourage biopsy of a clinically suspicious lesion. Electronically Signed By: Irineo Duran M.D. aty/:01/29/2020 14:20:44 ACR BI-RADS Category 0: Incomplete 3340F PARENCHYMAL PATTERN: (D) - The breast(s) demonstrate(s) heterogeneously dense fibroglandular paty styles. BI-RADS CATEGORY: (0) - 0 Mammo and US [id number] Immediate follow-up LATERALITY: (R)
== END 2020-01-29 10:00 | disposition home or self-care (01) ==
LOC: DI.N 09:59
DX: Z12.31 Encounter for screening mammogram for malignant neoplasm of breast (principal); R92.8 Other abnormal and inconclusive findings on diagnostic imaging of breast
CPT/HCPCS: 77063; 77067

== ENCOUNTER 2020-02-09 08:00 | Outpatient (CLI) | payer MEDICARE, OTHER ==
[2020-02-09 12:18] LABS: ALBUMIN 3.6 g/dL (3.2-5.5); ALBUMIN/GLOBULIN RATIO 1.1 (1.0-2.2); ALKALINE PHOSPHATASE 65 IU/L (42-121); ALT ALANINE AMINOTRANSFERASE 40 IU/L (10-60); AST ASPARTATE AMINOTRANSFERASE 35 IU/L (10-42); BILIRUBIN,TOTAL 0.7 mg/dL (0.2-1.0); BUN - BLOOD UREA NITROGEN 16 mg/dL (6-20); CALCIUM 9.1 mg/dL (8.5-10.3); CARBON DIOXIDE - CO2 28 mmol/L (21-32); CHLORIDE 100 mmol/L (101-111); CHOL/HDL RATIO 3.1 (<4.4); CHOLESTEROL 160 mg/dL; CREATININE 0.7 mg/dL (0.4-1.0); GLUCOSE 160 mg/dL (70-100); HDL CHOLESTEROL 52 mg/dL; LDL CHOLESTEROL,CALCULATED 83 mg/dL; LDL/HDL RATIO 1.6 (<4.4); SODIUM 139 mmol/L (135-145); TOTAL PROTEIN 6.8 g/dL (6.7-8.2); VLDL CHOLESTEROL 25 mg/dL
[2020-02-09 12:59] LABS: HEMOGLOBIN A1c% 7.9 % (4.27-6.07)
== END 2020-02-09 08:01 | disposition home or self-care (01) ==
LOC: LAB.WCP 08:00
PROVIDERS: ATTEND Family Medicine
DX: E11.9 Type 2 diabetes mellitus without complications (principal)
CPT/HCPCS: 36415; 80053; 80061; 83036; 83721

== ENCOUNTER 2020-02-23 10:34 | Outpatient (CLI) | payer MEDICARE, OTHER ==
--- NOTE | 2020-02-26 16:38 | Ultrasound Report ---
LIMITED ULTRASOUND OF RIGHT BREAST AND AXILLA: 02/23/2020 CLINICAL: Rt Axilla enlarged lymph node. Comparison is made to exams dated: 02/23/2020 mammogram, 01/29/2020 mammogram, 09/25/2019 CT, 05/24/2019 CT, 02/07/2019 mammogram, and 02/22/2018 mammogram - [facility]. Color flow and real-time ultrasound of the right breast 2 o'clock, and axilla regions were performed on the areas of interest. There is a 2.4 cm x 1.1 cm x 2.7 cm oval lymph node in the right axillary tail. This oval lymph node is hypoechoic with no fatty hilum. This correlates with mammography findings. Color flow imaging d emonstrates that there is increased vascularity. Another enlarged right axillary node with similar f eatures is demonstrated measuring 1.8 x 0.6 x 1.4 cm. There also is a benign 0.6 cm x 0.2 cm x 0.4 cm oval cyst in the right breast at 2 o'clock middle dep th. This oval cyst is anechoic with a well-defined boundary and posterior acoustic enhancement. Thi s correlates with mammography findings. Color flow imaging demonstrates that there is no vascularity present. IMPRESSION: SUSPICIOUS OF MALIGNANCY The 2.4 cm x 1.1 cm x 2.7 cm oval lymph node in the right axillary tail is suspicious of malignancy. An ultrasound guided biopsy is recommended. The 0.6 cm x 0.2 cm x 0.4 cm oval cyst in the right breast at 2 o'clock middle depth is consistent wi th a simple cyst and is benign. The findings were discussed with and the results were reviewed with the patient at the conclusion of the study by Dr. Caal. This exam was interpreted at Station ID: [id number]. Electronically Signed By: Angel Barber M.D. ddp/:02/23/2020 13:07:37 Ultrasound BI-RADS: 4 Suspicious for malignancy BI-RADS CATEGORY: (4) - 4 None [id number] Immediate follow-up LATERALITY: ()
--- NOTE | 2020-02-26 16:38 | Mammography Report ---
UNILATERAL RIGHT DIGITAL DIAGNOSTIC MAMMOGRAM 3D/2D: 02/23/2020 CLINICAL: Patient returns for additional imaging over an enlarged lymphnode in right breast. Comparison is made to exams dated: 01/29/2020 mammogram, 09/25/2019 CT, 05/24/2019 CT, 02/07/2019 mammog maci, 02/22/2018 mammogram, and 02/10/2016 mammogram - [facility]. The tissue of ri ght breast is heterogeneously dense. This may lower the sensitivity of mammography. There is an oval low density mass with a circumscribed margin in the right breast at 3 o'clock middle depth. No other significant masses or calcifications are seen in the breast. IMPRESSION: INCOMPLETE: NEEDS ADDITIONAL IMAGING EVALUATION Enlarged right axillary lymph node seen on screening mammogram not visualized on additional views. Ul trasound is recommended. The oval low density mass in the right breast is indeterminate. An ultrasound is recommended. Ultrasound will be performed immediately following the current exam. This exam was interpreted at Station ID: [id number]. NOTE: For mammograms, a report in lay terms will be sent to the patient. Approximately 15% of breast malignancies will not be visualized mammographically. In the management of a palpable breast mass, a negative mammogram must not discourage biopsy of a clinically suspicious lesion. Electronically Signed By: Angel Barber M.D. ddp/:02/23/2020 11:25:27 ACR BI-RADS Category 0: Incomplete 3340F PARENCHYMAL PATTERN: (D) - The breast(s) demonstrate(s) heterogeneously dense fibroglandular parfeleciay ma. BI-RADS CATEGORY: (0) - 0 Ultrasound [id number] Immediate follow-up LATERALITY: (B)
== END 2020-02-23 10:35 | disposition home or self-care (01) ==
LOC: DI 10:34
PROVIDERS: ATTEND Family Medicine
DX: R59.0 Localized enlarged lymph nodes (principal); N60.01 Solitary cyst of right breast
CPT/HCPCS: 76642

== ENCOUNTER 2020-03-04 12:36 | Outpatient (CLI) | payer MEDICARE, OTHER ==
[2020-03-04] MEDS ORDERED: BUFFERED LIDOCAINE 10 ML SYRINGE ONE (13:17)
[2020-03-04] MEDS ORDERED: BUFFERED LIDOCAINE 10 ML SYRINGE IU ONE (14:41)
--- NOTE | 2020-03-05 10:48 | Mammography Report ---
UNILATERAL RIGHT DIGITAL DIAGNOSTIC MAMMOGRAM 3D/2D: 03/04/2020 CLINICAL: Post right breast ultrasound biopsy, clip placment imaging. Comparison is made to exam dated: 02/23/2020 ultrasound - [facility]. The tissue of right breast is heterogeneously dense. This may lower the sensitivity of mammography. Post biopsy marker is within the enlarged node of current clinical concern. IMPRESSION: POST PROCEDURE MAMMOGRAM FOR MARKER PLACEMENT The biopsy marker clip placed withing the node at the right axilla that was biopsied earlier today ca n be seen to be centrally located within the node by axillary right mammogram. This exam was interpreted at Station ID: [id number]. NOTE: For mammograms, a report in lay terms will be sent to the patient. Approximately 15% of breast malignancies will not be visualized mammographically. In the management of a palpable breast mass, a negative mammogram must not discourage biopsy of a clinically suspicious lesion. Electronically Signed By: Bob Caal M.D. sdh/:03/05/2020 10:16:45 ACR BI-RADS Category Post-procedure mammogram for marker placement PARENCHYMAL PATTERN: (D) - The breast(s) demonstrate(s) heterogeneously dense fibroglandular paty styles. BI-RADS CATEGORY: () - Unspecified - other recall n/a LATERALITY: (B)
--- NOTE | 2020-03-11 08:20 | Ultrasound Report ---
ULTRASOUND GUIDED BIOPSY RIGHT BREAST WITH MARKING DEVICE INSERTED AND POST MAMMOGRAPHIC AND ULTRASOU ND IMAGIN03/04/2020 CLINICAL: Right axillary node biopsy. PATIENT CONSENT: Risks (minor bleeding, infection, vasovagal reaction and repeat procedure), benefits and alternatives were explained to the patient and written informed consent was obtained. Correlation is made to exams dated: 03/04/2020 mammogram, 02/23/2020 ultrasound, 02/23/2020 mammogram , 01/29/2020 mammogram, 09/25/2019 CT, and 05/24/2019 CT - [facility]. An ultrasound guided biopsy using real-time ultrasound was performed for the concerning circumscribed reniform shaped lymph node located in the right axilla. This was described on the previous ultrasou nd report. The skin was prepped in the usual manner. Local anesthetic was administered to the acces s site. A skin tahmina was made in the breast. The abnormality was approached from the caudocranial as pect. An 18 gauge biopsy needle was placed adjacent to the abnormality through an introducer device under ultrasound guidance. Once the needle was documented to be in the correct location, four specim ens were obtained using a BARD biopsy device. A clip was inserted into the biopsy cavity. A skin cl osure strip and a sterile dressing were applied to the access site. Post procedure mammographic and ultrasound imaging demonstrates the location device at the targeted area and partial removal of the a bnormality. The specimens were sent to the laboratory for pathological analysis. IMPRESSION: ULTRASOUND GUIDED BIOPSY BENIGN Ultrasound guided biopsy of the lymph node in the right axilla was successful. Pathology results ind icated benign reactive lymph node. Radiologic and pathologic diagnosis are concordant. Return to annual screening mammography. This exam was interpreted at Station ID: [id number]. Bob Duran M.D. [facility],aty/:03/08/2020 17:25:30 BI-RADS CATEGORY: () - Unspecified - other recall n/a LATERALITY: (B)
== END 2020-03-04 12:37 | disposition home or self-care (01) ==
LOC: DI 12:36
PROVIDERS: ATTEND Family Medicine
DX: R92.8 Other abnormal and inconclusive findings on diagnostic imaging of breast (principal); R59.0 Localized enlarged lymph nodes
CPT/HCPCS: 38505; 88305; 88341; 88342; 88360

== ENCOUNTER 2020-05-15 07:35 | Outpatient (CLI) | payer MEDICARE, OTHER ==
[2020-05-15 12:39] LABS: ALBUMIN 3.9 g/dL (3.2-5.5); ALBUMIN/GLOBULIN RATIO 1.2 (1.0-2.2); ALKALINE PHOSPHATASE 74 IU/L (42-121); ALT ALANINE AMINOTRANSFERASE 53 IU/L (10-60); AST ASPARTATE AMINOTRANSFERASE 42 IU/L (10-42); BILIRUBIN,TOTAL 0.7 mg/dL (0.2-1.0); BUN - BLOOD UREA NITROGEN 20 mg/dL (6-20); CALCIUM 9.4 mg/dL (8.5-10.3); CARBON DIOXIDE - CO2 29 mmol/L (21-32); CHLORIDE 100 mmol/L (101-111); CHOL/HDL RATIO 3.2 (<4.4); CHOLESTEROL 180 mg/dL; CREATININE 0.7 mg/dL (0.4-1.0); GLUCOSE 150 mg/dL (70-100); HDL CHOLESTEROL 57 mg/dL; LDL CHOLESTEROL,CALCULATED 93 mg/dL; LDL/HDL RATIO 1.6 (<4.4); TOTAL PROTEIN 7.2 g/dL (6.7-8.2); VLDL CHOLESTEROL 30 mg/dL
[2020-05-15 12:44] LABS: HEMOGLOBIN A1c% 8.3 % (4.27-6.07)
[2020-05-15 12:54] LABS: BASOPHILS # (AUTO) 0.1 10^3/uL (0.0-0.1); BASOPHILS % (AUTO) 0.7 %; EOSINOPHILS # (AUTO) 0.7 10^3/uL (0.0-0.7); EOSINOPHILS % (AUTO) 7.1 %; HGB - HEMOGLOBIN 11.8 g/dL (12.0-16.0); LYMPHOCYTES # (AUTO) 3.1 10^3/uL (1.5-3.5); LYMPHOCYTES % (AUTO) 31.1 %; MEAN CORPUSCULAR HGB CONC 29.9 g/dL (32.0-36.0); MEAN CORPUSCULAR VOLUME 70.2 fL (81.0-99.0); MEAN PLATELET VOLUME 12.5 fL (7.9-10.8); MONOCYTES # (AUTO) 0.8 10^3/uL (0.0-1.0); MONOCYTES % (AUTO) 7.9 %; NEUTROPHILS # (AUTO) 5.3 10^3/uL (1.5-6.6); NEUTROPHILS % (AUTO) 52.6 %; PLT - PLATELET COUNT 226 10^3/uL (130-450); RED BLOOD COUNT 5.63 10^6/uL (4.20-5.40); RED CELL DISTRIBUTION WIDTH 13.9 % (12.0-15.0); WHITE BLOOD COUNT 10.1 x10^3/uL (4.8-10.8)
[2020-05-16 13:31] LABS: CREATININE,URINE 106.4 mg/dL; MICROALBUM/CREATININE RATIO,UR 2.8 ug/mg (<30.0); MICROALBUMIN,URINE 0.3 mg/dL (0-300.0)
== END 2020-05-15 23:59 | disposition home or self-care (01) ==
LOC: LAB.WCP 07:35
PROVIDERS: ATTEND Family Medicine
DX: E11.9 Type 2 diabetes mellitus without complications (principal)
CPT/HCPCS: 36415; 80053; 80061; 82043; 82570; 83036; 83721; 85025

== ENCOUNTER 2020-08-06 09:30 | Outpatient (CLI) | payer MEDICARE, OTHER ==
--- NOTE | 2020-08-06 10:17 | SLEEP CARE CONSULTATION ---
Information from patient questionnaire entered by Jyoti Perez. I have reviewed and concur with the information entered by Jyoti Perez. This document represents the service I personally performed and the decisions made by , Tahmina Lovell ARNP. History of Present Illness Service Date and Time: 08/06/2020 0930 Previous diagnosis: Very Severe, Obstructive Sleep Apnea-Hypopnea Syndrome AHI: 68.9 (in 2016)(48.6 in 2005) Reason for follow up: annual (Last seen 07/2019) Equipment type: CPAP Equipment obtained from: [employer] (getting supplies as needed) Mask style: Nasal Mask brand: Respironics (Dreamwear) Backup mask available: Yes (old mask) Last cushion change: last night Prior sleep studies: Yes Year and Where: 2005 and 2015 - [facility] Type of Sleep Study: Polysomnography HPI additional information: ZAKIYA JONES was diagnosed to have very severe, AHI 68.9, obstructive sleep apnea-hypopnea syndrome and returned today for CPAP therapy annual follow-up. CPAP Compliance Data - Data Reviewed with Patient Average duration of nightly device use: 7 hr 43 min Compliance rate %: 98.3 (180 days) Current pressure setting (cmH2O): 5-11 Humidity settin Heated hose settin Average residual AHI: 3.5 Average large leak: 3 sec Subjective Missed days of use due to: reports: travel (using travel CPAP for gaps) Patient concerns: denies: aerophagia, mask discomfort, air blowing in eyes, mask leak noise, condensation in mask/hose, nasal congestion, dry mouth, nose, throat, epistaxis, other Observed to snore while using device: No Current pressure setting perceived as: comfortable On therapy, patient: reports: sleeping better, awakening more refreshed, being more awake and alert during the day, more rested overall. denies: drowsiness while driving Initial [place] Sleepiness Scale score: 8 (in 2015) Current [place] Sleepiness Scale score: 3 Allergies and Home Medications Home medication list reviewed: Yes (Sertraline 25 mg daily, for mild depression) Review of Systems Review of systems same as previous: No (mild depression; 2018 lymph node left side neck; 2019 biopsy lymph node arm) Physical Exam Heart Rate: 53 O2 Saturation: 98 Height: 4 ft 11 in Weight: 186 lb Body Mass Index: 37.5 BMI Classification: Obese Impression and Plan 1. Obstructive Sleep Apnea-Hypopnea Syndrome, very, with good treatment compliance and good apnea control. On CPAP therapy, the patient has better sleep quality and is more rested overall. She has a travel CPAP machine that she uses when she travel. She is going on vacation in September and will be taking her travel machine. She has no concerns or issues with CPAP use and has had significant improvement of her apnea. Patient's apnea severity and rationale for treatment to reduce apnea, improve sleep quality and reduce cardiovascular and cerebrovascular events was reviewed. I also reviewed the benefit of consistent device use of CPAP for hypertension, diabetes and depression. * Continue auto CPAP pressure at 5-11 cmH2O * Notify me if snoring with mask or feeling that the pressure is too much or too little * Attempt to lose weight * Call this office if any problems using CPAP * Return for follow up in 1 year, or sooner if concerns arise Counseling Topics: Spare mask, Weight loss health impact Visit Type: In Office Time Spent with Patient (minutes): 21 Provider Statement: I spent 100% of the Face to Face Visit with the patient with greater than 50% spent counseling the patient and coordination of care.
== END 2020-08-06 09:31 | disposition home or self-care (01) ==
LOC: SC 09:30
PROVIDERS: ATTEND Nurse Practitioner Family
DX: G47.33 Obstructive sleep apnea (adult) (pediatric) (principal); E66.9 Obesity, unspecified; Z68.37 Body mass index [BMI] 37.0-37.9, adult
CPT/HCPCS: 99213; G0463; 99212

== ENCOUNTER 2020-08-13 08:00 | Outpatient (CLI) | payer MEDICARE, OTHER ==
[2020-08-13 13:42] LABS: CALCIUM 9.3 mg/dL (8.5-10.3); CREATININE 0.7 mg/dL (0.4-1.0); POTASSIUM 3.7 mmol/L (3.5-5.0)
[2020-08-13 14:05] LABS: ESTIMATED AVERAGE GLUCOSE 180 mg/dL (70-100); HEMOGLOBIN A1c% 7.9 % (4.27-6.07)
== END 2020-08-13 23:59 | disposition home or self-care (01) ==
LOC: LAB.WCP 08:00
PROVIDERS: ATTEND Family Medicine
DX: E11.9 Type 2 diabetes mellitus without complications (principal)
CPT/HCPCS: 36415; 80048; 83036

== ENCOUNTER 2021-02-11 08:03 | Outpatient (CLI) | payer MEDICARE, OTHER ==
[2021-02-11 12:56] LABS: BASOPHILS # (AUTO) 0.1 10^3/uL (0.0-0.1); BASOPHILS % (AUTO) 0.8 %; EOSINOPHILS # (AUTO) 0.6 10^3/uL (0.0-0.7); EOSINOPHILS % (AUTO) 6.6 %; HCT - HEMATOCRIT 37.6 % (37.0-47.0); HGB - HEMOGLOBIN 11.4 g/dL (12.0-16.0); LYMPHOCYTES # (AUTO) 3.1 10^3/uL (1.5-3.5); LYMPHOCYTES % (AUTO) 33.4 %; MEAN CORPUSCULAR HEMOGLOBIN 20.6 pg (27.0-31.0); MEAN CORPUSCULAR HGB CONC 30.3 g/dL (32.0-36.0); MEAN CORPUSCULAR VOLUME 67.9 fL (81.0-99.0); MEAN PLATELET VOLUME 12.2 fL (7.9-10.8); MONOCYTES # (AUTO) 0.6 10^3/uL (0.0-1.0); MONOCYTES % (AUTO) 6.5 %; NEUTROPHILS # (AUTO) 4.8 10^3/uL (1.5-6.6); NEUTROPHILS % (AUTO) 51.7 %; PLT - PLATELET COUNT 262 10^3/uL (130-450); RED BLOOD COUNT 5.54 10^6/uL (4.20-5.40); RED CELL DISTRIBUTION WIDTH 14.7 % (12.0-15.0); WHITE BLOOD COUNT 9.3 x10^3/uL (4.8-10.8)
[2021-02-11 14:00] LABS: ALBUMIN 3.8 g/dL (3.2-5.5); ALBUMIN/GLOBULIN RATIO 1.1 (1.0-2.2); ALKALINE PHOSPHATASE 73 IU/L (42-121); ALT ALANINE AMINOTRANSFERASE 48 IU/L (10-60); AST ASPARTATE AMINOTRANSFERASE 37 IU/L (10-42); BILIRUBIN,TOTAL 0.5 mg/dL (0.2-1.0); BUN - BLOOD UREA NITROGEN 21 mg/dL (6-20); CALCIUM 9.2 mg/dL (8.5-10.3); CARBON DIOXIDE - CO2 27 mmol/L (21-32); CHLORIDE 99 mmol/L (101-111); CHOL/HDL RATIO 3.4 (<4.4); CHOLESTEROL 182 mg/dL; CREATININE 0.6 mg/dL (0.4-1.0); GFR - MDRD 99 (>89); GLUCOSE 175 mg/dL (70-100); HDL CHOLESTEROL 54 mg/dL; LDL CHOLESTEROL,CALCULATED 100 mg/dL; LDL/HDL RATIO 1.9 (<4.4); POTASSIUM 3.6 mmol/L (3.5-5.0); SODIUM 137 mmol/L (135-145); TOTAL PROTEIN 7.3 g/dL (6.7-8.2); TRIGLYCERIDES 138 mg/dL; VLDL CHOLESTEROL 28 mg/dL
[2021-02-11 14:16] LABS: ESTIMATED AVERAGE GLUCOSE 209 mg/dL (70-100); HEMOGLOBIN A1c% 8.9 % (4.27-6.07)
[2021-02-11 18:33] LABS: CREATININE,URINE 42.7 mg/dL; MICROALBUMIN,URINE 0.3 mg/dL (0-300.0)
== END 2021-02-11 23:59 | disposition home or self-care (01) ==
LOC: LAB.WCP 08:03
PROVIDERS: ATTEND Family Medicine
DX: E11.9 Type 2 diabetes mellitus without complications (principal)
CPT/HCPCS: 36415; 80053; 80061; 82043; 82570; 83036; 83721; 85025

== ENCOUNTER 2021-05-14 08:00 | Outpatient (CLI) | payer MEDICARE, OTHER ==
[2021-05-14 12:51] LABS: ALBUMIN 3.8 g/dL (3.2-5.5); BILIRUBIN,TOTAL 0.7 mg/dL (0.2-1.0); CALCIUM 9.4 mg/dL (8.5-10.3); CREATININE 0.7 mg/dL (0.4-1.0); POTASSIUM 3.5 mmol/L (3.5-5.0); TOTAL PROTEIN 7.5 g/dL (6.7-8.2)
[2021-05-15 17:42] LABS: ESTIMATED AVERAGE GLUCOSE 174 mg/dL (70-100); HEMOGLOBIN A1c% 7.7 % (4.27-6.07)
== END 2021-05-14 23:59 | disposition home or self-care (01) ==
LOC: LAB.WCP 08:00
PROVIDERS: ATTEND Family Medicine
DX: E11.9 Type 2 diabetes mellitus without complications (principal)
CPT/HCPCS: 36415; 80053; 83036

== ENCOUNTER 2021-08-26 08:50 | Outpatient (CLI) | payer MEDICARE, OTHER ==
[2021-08-26 09:42] VITALS: BP 128/68
--- NOTE | 2021-08-26 09:42 | SLEEP CARE CONSULTATION ---
Information from patient questionnaire entered by Yumiko Bowser. I have reviewed and concur with the information entered by Yumiko Bowser. This document represents the service I personally performed and the decisions made by me, Tahmina Lovell ARNP. History of Present Illness Service Date and Time: 08/26/2021 0850 Previous diagnosis: Very Severe, Obstructive Sleep Apnea-Hypopnea Syndrome AHI: 68.9 (in 2016)(48.6 in 2006) Reason for follow up: annual (LAST SEEN 08/06/2020) Equipment type: CPAP Equipment obtained from: [employer] (getting supplies as needed) Mask style: Nasal Mask brand: Respironics (Dreamwear) Backup mask available: Yes (old mask) Last cushion change: 2 days ago Prior sleep [facility]: Yes [facility] Type of Sleep Study: Polysomnography HPI additional information: ZAKIYA JONES was diagnosed to have very severe, AHI 68.6, obstructive sleep apnea-hypopnea syndrome and returned today for CPAP therapy annual follow-up. Sleep Study - Results Type of Sleep Study: Polysomnography Prior sleep studies: Yes Year and [facility] CPAP Compliance Data - Data Reviewed with Patient Average duration of nightly device use: 8 hours 17 minutes Compliance rate %: 91.7 (180 days) Average residual AHI: 4.4 Central apnea: 0.3 Obstructive apnea: 2.8 Average large leak: 1 mins 4 secs Subjective Missed days of use due to: reports: travel (uses travel [employer] 360AP Transcend) Patient concerns: denies: aerophagia, mask discomfort, air blowing in eyes, mask leak noise, condensation in mask/hose, nasal congestion, dry mouth, nose, throat, epistaxis, other Observed to snore while using device: No Current pressure setting perceived as: comfortable On therapy, patient: reports: sleeping better, awakening more refreshed, being more awake and alert during the day, more rested overall. denies: drowsiness while driving Initial [place] Sleepiness Scale score: 8 (in 2016) Current [place] Sleepiness Scale score: 5 Allergies and Home Medications Known drug allergies: No (none) Drug allergies reviewed: Yes Home medication list reviewed: Yes (sertraline 25 mg daily) Allergy and home medication list: Allergies aspirin Adverse Reaction (Verified 10/02/19 14:53) Cramps lisinopril Adverse Reaction (Verified 10/02/19 14:53) cough metformin Adverse Reaction (Verified 10/02/19 14:53) diarrhea venom-honey bee [bee venom (honey bee)] Adverse Reaction (Verified 10/02/19 14:53) Rash Review of Systems Review of systems same as previous: Yes (no changes) Physical Exam Vital signs obtained and entered by: Jimmy BOWSER MA Blood Pressure: 128/68 (manual) Cuff size: regular Heart Rate: 74 O2 Saturation: 97 Height: 4 ft 11 in Weight: 186 lb Body Mass Index: 37.5 BMI Classification: Obese Impression and Plan 1. Obstructive Sleep Apnea-Hypopnea Syndrome, very severe, with good treatment compliance and good apnea control. On CPAP therapy, the patient has better sleep quality and is more rested overall. She uses her travel CPAP several times a year. She uses her CPAP every night. Patient has a Dreamstation last updated in 2016. I informed the patient that [employer] has a recall on several devices like the patients machine. Patient was encouraged to register their device online with [employer] for the recall to see if their device is affected. If their device is affected they should start a claim. Patient denies any black particles seen in machine or hoses, any unusual odors coming from device. Patient has not experienced any physical symptoms such as upper airway irritation, headache, skin or eye irritation, asthma, nausea/vomiting, dif ficulty breathing or chest pain. If patient is not able to sleep due to waking up choking, gasping for air or other respiratory distress that they may decide to continue using it until it is either replaced or repaired. Since the patients current machine is at least 5 years old, the patient is opting to update their device with a device that is not on the recall. Patient voiced understanding and agreement with plan. Patient's apnea severity and rationale for treatment to reduce apnea, improve sleep quality and reduce cardiovascular and cerebrovascular events was reviewed. I also reviewed the benefit of consistent device use of CPAP for hypertension, diabetes and depression. 2. Obesity, unspecified. Currently patients BMI is 37.5. Obesity increases the risk of apnea, CPAP pressure requirements and overall health risks especially cardiovascular and diabetes. Thus patient is advised to lose weight. Weight loss can be done with reducing portion size, reducing refined foods and balancing content with vegetables, fruit and whole grain foods. In addition, patient encouraged to get regular exercise. * Continue auto CPAP pressure at 5-11 cmH2O * Update machine * update supplies as needed * Notify me if snoring with mask or feeling that the pressure is too much or too little * Attempt to lose weight * Call this office if any problems using CPAP * Return for follow up one month after obtaining new device, or sooner if concerns arise Counseling Topics: Spare mask, Weight loss health impact Visit Type: In Office Time Spent with Patient (minutes): 23 Provider Statement: I spent 100% of the Face to Face Visit with the patient with greater than 50% spent counseling the patient and coordination of care.
== END 2021-08-26 08:51 | disposition home or self-care (01) ==
LOC: SC 08:50
PROVIDERS: ATTEND Nurse Practitioner Family
DX: G47.33 Obstructive sleep apnea (adult) (pediatric) (principal); E66.9 Obesity, unspecified; Z68.37 Body mass index [BMI] 37.0-37.9, adult
CPT/HCPCS: 99213; G0463; 99212

== ENCOUNTER 2021-09-11 14:12 | Outpatient (CLI) | payer MEDICARE, OTHER ==
[2021-09-11 17:57] LABS: ALBUMIN/GLOBULIN RATIO 0.9 (1.0-2.2); ALKALINE PHOSPHATASE 103 IU/L (42-121); ALT ALANINE AMINOTRANSFERASE 35 IU/L (10-60); AST ASPARTATE AMINOTRANSFERASE 40 IU/L (10-42); BILIRUBIN,TOTAL 0.5 mg/dL (0.2-1.0); BUN - BLOOD UREA NITROGEN 12 mg/dL (6-20); CALCIUM 8.5 mg/dL (8.5-10.3); CARBON DIOXIDE - CO2 26 mmol/L (21-32); CHLORIDE 107 mmol/L (101-111); CHOL/HDL RATIO 3.3 (<4.4); CHOLESTEROL 125 mg/dL; CREATININE 0.6 mg/dL (0.4-1.0); GFR - MDRD 99 (>89); GLUCOSE 153 mg/dL (70-100); HDL CHOLESTEROL 38 mg/dL; LDL CHOLESTEROL,CALCULATED 57 mg/dL; LDL/HDL RATIO 1.5 (<4.4); POTASSIUM 3.8 mmol/L (3.5-5.0); SODIUM 141 mmol/L (135-145); TOTAL PROTEIN 6.4 g/dL (6.7-8.2); TRIGLYCERIDES 148 mg/dL; VLDL CHOLESTEROL 30 mg/dL
[2021-09-11 18:08] LABS: BASOPHILS % (AUTO) 0.5 %; EOSINOPHILS % (AUTO) 5.6 %; HCT - HEMATOCRIT 34.5 % (37.0-47.0); HGB - HEMOGLOBIN 10.5 g/dL (12.0-16.0); LYMPHOCYTES % (AUTO) 37.9 %; MEAN CORPUSCULAR HEMOGLOBIN 19.9 pg (27.0-31.0); MEAN CORPUSCULAR HGB CONC 30.4 g/dL (32.0-36.0); MEAN CORPUSCULAR VOLUME 65.3 fL (81.0-99.0); MONOCYTES % (AUTO) 7.9 %; NEUTROPHILS % (AUTO) 47.6 %; PLT - PLATELET COUNT 206 10^3/uL (130-450); RED BLOOD COUNT 5.28 10^6/uL (4.20-5.40); RED CELL DISTRIBUTION WIDTH 16.3 % (12.0-15.0); WHITE BLOOD COUNT 8.1 x10^3/uL (4.8-10.8)
[2021-09-11 18:13] LABS: ABNORMAL LYMPHS % (MANUAL) 0 %
[2021-09-11 20:08] LABS: BAND NEUTROPHILS % (MANUAL) 1 %; EOSINOPHILS # (MANUAL) 0.3 10^3/uL (0-0.7); LYMPHOCYTES # (MANUAL) 2.9 10^3/uL (1.5-3.5); LYMPHOCYTES % (MANUAL) 29 %; MONOCYTES # (MANUAL) 0.6 10^3/uL (0.0-1.0); NEUTROPHILS # (MANUAL) 4.3 10^3/uL (1.5-6.6); REACTIVE LYMPHS % (MANUAL) 7 %
[2021-09-11 20:10] LABS: DIFFERENTIAL COMMENT MANUAL DIFFERENTIAL; PLATELET ESTIMATE, MANUAL NORMAL (130-450,000) (NORMAL); PLATELET MORPHOLOGY 1+ GIANT PLATELETS (NORMAL)
[2021-09-11 20:33] LABS: ESTIMATED AVERAGE GLUCOSE 189 mg/dL (70-100); HEMOGLOBIN A1c% 8.2 % (4.27-6.07)
== END 2021-09-11 14:13 | disposition home or self-care (01) ==
LOC: LAB.N 14:12
PROVIDERS: ATTEND Family Medicine
DX: E11.9 Type 2 diabetes mellitus without complications (principal)
CPT/HCPCS: 36415; 80053; 80061; 83036; 83721; 85025

== ENCOUNTER 2021-10-29 09:00 | Outpatient (CLI) | payer MEDICARE, OTHER ==
[2021-10-29 09:42] VITALS: BP 125/74
--- NOTE | 2021-10-29 09:42 | SLEEP CARE CONSULTATION ---
Information from patient questionnaire entered by Edwin Morelos MA. I have reviewed and concur with the information entered by Edwin Morelos MA. This document represents the service I personally performed and the decisions made by , Tahmina Lovell ARNP. History of Present Illness Service Date and Time: 10/29/2021 0900 Previous diagnosis: Very Severe, Obstructive Sleep Apnea-Hypopnea Syndrome AHI: 68.9 (in 2016)(48.6 in 2005) Reason for follow up: first compliance (DAVIDSON 08/2021 REPL DEV, RESMED, PROR TIA,), first compliance after device update Equipment type: CPAP Equipment obtained from: [employer] (getting supplies as needed) Mask style: Nasal Mask brand: Respironics Backup mask available: Yes (old mask) Last cushion change: 1 week Prior [facility]: Yes [facility] Type of Sleep Study: Polysomnography HPI additional information: ZAKIYA JONES was diagnosed to have very severe, AHI 68.9, obstructive sleep apnea-hypopnea syndrome and returned today for CPAP therapy first compliance after updating device follow-up. Sleep Study - Results Type of Sleep Study: Polysomnography Prior sleep studies: Yes Year and Where: 2005 and 2015 - [facility] CPAP Compliance Data - Data Reviewed with Patient Average duration of nightly device use: 7 HOURS 28 MINUTES Compliance rate %: 93 (09/14/21-10/28/21; 44/45 days) Current pressure setting (cmH2O): 5-11 Average residual AHI: 2.3 Central apnea: 0.1 Obstructive apnea: 2.0 Hypopnea: 0.1 Average large leak: 17.7 L/min Subjective Missed days of use due to: reports: travel (using travel cpap) Patient concerns: denies: aerophagia, mask discomfort, air blowing in eyes, mask leak noise, condensation in mask/hose, nasal congestion, dry mouth, nose, throat, epistaxis, other Observed to snore while using device: No Current pressure setting perceived as: comfortable On therapy, patient: reports: sleeping better, awakening more refreshed, being more awake and alert during the day, more rested overall. denies: drowsiness while driving Initial [place] Sleepiness Scale score: 8 (in 2015) Current [place] Sleepiness Scale score: 4 (10/29/2021) Allergies and Home Medications Known drug allergies: Yes (METFORMIN, IRON, ) Drug allergies reviewed: Yes Home medication list reviewed: Yes (no changes) Allergy and home medication list: Allergies aspirin Adverse Reaction (Verified 10/02/19 14:53) Cramps lisinopril Adverse Reaction (Verified 10/02/19 14:53) cough metformin Adverse Reaction (Verified 10/02/19 14:53) diarrhea venom-honey bee [bee venom (honey bee)] Adverse Reaction (Verified 10/02/19 14:53) Rash Review of Systems Review of systems same as previous: Yes (no changes) Physical Exam Vital signs obtained and entered by: WHIT Morelos Blood Pressure: 125/74 (RESP 18, PULSE 75, RIGHT) Cuff size: wrist Heart Rate: 72 O2 Saturation: 98 (PAPER MASK) Height: 4 ft 11 in Weight: 184 lb (CLOTHES) Weight change since last visit: TRYING TO LOOSE, BUT MAINTAINING Body Mass Index: 37.1 BMI Classification: Obese Impression and Plan 1. Obstructive Sleep Apnea-Hypopnea Syndrome, very severe, with good treatment compliance and good apnea control. On CPAP therapy, the patient has better sleep quality and is more rested overall. Patient states she uses her travel CPAP whenever she travels because it is more convenient. She states she got it from [employer] and there is no way to get the download information off of it now. Patient states pressure is comfortable and she has significant improvement of her sleep apnea. Patient denies problems with oral dryness, nasal congestion, epistaxis, skin irritation or aerophagia. Patient's apnea severity and rationale for treatment to reduce apnea, improve sleep quality and reduce cardiovascular and cerebrovascular events was reviewed. I also reviewed the benefit of consistent device use of CPAP for hypertension, diabetes and depression. 2. Obesity, unspecified. Currently patients BMI is 37.1. Obesity increases the risk of apnea, CPAP pressure requirements and overall health risks especially cardiovascular and diabetes. Thus patient is advised to lose weight. Weight loss can be done with reducing portion size, reducing refined foods and balancing content with vegetables, fruit and whole grain foods. In addition, patient encouraged to get regular exercise. The patient's CPAP pressure range should accommodate some weight loss. * Continue auto CPAP pressure at 5-11 cmH2O * Notify me if snoring with mask or feeling that the pressure is too much or too little * Attempt to lose weight * Call this office if any problems using CPAP * Return for follow up in 1 year, or sooner if concerns arise Counseling Topics: Spare mask, Weight loss health impact Visit Type: In Office Time Spent with Patient (minutes): 20 Provider Statement: I spent 100% of the Face to Face Visit with the patient with greater than 50% spent counseling the patient and coordination of care.
== END 2021-10-29 09:01 | disposition home or self-care (01) ==
LOC: SC 09:00
PROVIDERS: ATTEND Nurse Practitioner Family
DX: G47.33 Obstructive sleep apnea (adult) (pediatric) (principal); E66.9 Obesity, unspecified; Z68.37 Body mass index [BMI] 37.0-37.9, adult
CPT/HCPCS: 99213; G0463; 99212

== ENCOUNTER 2022-03-04 08:51 | Outpatient (CLI) | payer MEDICARE, OTHER ==
[2022-03-04 12:43] LABS: BASOPHILS # (AUTO) 0.1 10^3/uL (0.0-0.1); BASOPHILS % (AUTO) 0.8 %; EOSINOPHILS # (AUTO) 0.8 10^3/uL (0.0-0.7); EOSINOPHILS % (AUTO) 8.5 %; HCT - HEMATOCRIT 36.7 % (37.0-47.0); LYMPHOCYTES # (AUTO) 3.1 10^3/uL (1.5-3.5); LYMPHOCYTES % (AUTO) 34.4 %; MEAN CORPUSCULAR HEMOGLOBIN 19.4 pg (27.0-31.0); MEAN CORPUSCULAR VOLUME 64.8 fL (81.0-99.0); MONOCYTES # (AUTO) 0.7 10^3/uL (0.0-1.0); MONOCYTES % (AUTO) 8.3 %; NEUTROPHILS # (AUTO) 4.3 10^3/uL (1.5-6.6); NEUTROPHILS % (AUTO) 47.8 %; PLT - PLATELET COUNT 219 10^3/uL (130-450); RED BLOOD COUNT 5.66 10^6/uL (4.20-5.40); RED CELL DISTRIBUTION WIDTH 16.3 % (12.0-15.0)
[2022-03-04 13:13] LABS: PLATELET ESTIMATE, MANUAL NORMAL (130-450,000) (NORMAL); PLATELET MORPHOLOGY NORMAL APPEARANCE (NORMAL); SLIDE REVIEW? Indicated
[2022-03-04 13:22] LABS: ALBUMIN 3.8 g/dL (3.2-5.5); ALKALINE PHOSPHATASE 79 IU/L (42-121); ALT ALANINE AMINOTRANSFERASE 28 IU/L (10-60); AST ASPARTATE AMINOTRANSFERASE 32 IU/L (10-42); BILIRUBIN,TOTAL 0.5 mg/dL (0.2-1.0); BUN - BLOOD UREA NITROGEN 13 mg/dL (6-20); CALCIUM 9.3 mg/dL (8.5-10.3); CARBON DIOXIDE - CO2 30 mmol/L (21-32); CHLORIDE 99 mmol/L (101-111); CHOL/HDL RATIO 3.3 (<4.4); CHOLESTEROL 176 mg/dL; CREATININE 0.6 mg/dL (0.4-1.0); GFR - MDRD 99 (>89); GLUCOSE 140 mg/dL (70-100); HDL CHOLESTEROL 54 mg/dL; LDL CHOLESTEROL,CALCULATED 93 mg/dL; LDL/HDL RATIO 1.7 (<4.4); POTASSIUM 3.4 mmol/L (3.5-5.0); SODIUM 139 mmol/L (135-145); TOTAL PROTEIN 7.8 g/dL (6.7-8.2); TRIGLYCERIDES 146 mg/dL; VLDL CHOLESTEROL 29 mg/dL
[2022-03-04 13:24] LABS: THYROID STIMULATING HORMONE 2.94 uIU/mL (0.34-5.60)
[2022-03-04 13:47] LABS: ESTIMATED AVERAGE GLUCOSE 186 mg/dL (70-100); HEMOGLOBIN A1c% 8.1 % (4.27-6.07)
== END 2022-03-04 08:52 | disposition home or self-care (01) ==
LOC: LAB.N 08:51
PROVIDERS: ATTEND Nurse Practitioner Family
DX: I10 Essential (primary) hypertension (principal); E78.5 Hyperlipidemia, unspecified; E11.9 Type 2 diabetes mellitus without complications
CPT/HCPCS: 36415; 80053; 80061; 83036; 83721; 84443; 85025

== ENCOUNTER 2022-07-08 09:40 | Outpatient (CLI) | payer MEDICARE, OTHER ==
[2022-07-08 12:21] LABS: CALCIUM 9.1 mg/dL (8.5-10.3); CREATININE 0.9 mg/dL (0.4-1.0); POTASSIUM 4.4 mmol/L (3.5-5.0)
[2022-07-08 12:24] LABS: ESTIMATED AVERAGE GLUCOSE 183 mg/dL (70-100)
== END 2022-07-08 09:41 | disposition home or self-care (01) ==
LOC: LAB.N 09:40
PROVIDERS: ATTEND Nurse Practitioner Family
DX: I10 Essential (primary) hypertension (principal); E11.9 Type 2 diabetes mellitus without complications
CPT/HCPCS: 36415; 80048; 83036

== ENCOUNTER 2022-10-30 07:56 | Outpatient (CLI) | payer MEDICARE, OTHER ==
[2022-10-30 13:43] LABS: BUN - BLOOD UREA NITROGEN 19 mg/dL (6-20); CALCIUM 9.1 mg/dL (8.5-10.3); CARBON DIOXIDE - CO2 28 mmol/L (21-32); CHLORIDE 105 mmol/L (101-111); CHOL/HDL RATIO 3.4 (<4.4); CHOLESTEROL 188 mg/dL; CREATININE 0.7 mg/dL (0.4-1.0); GFR - MDRD 82 (>89); GLUCOSE 161 mg/dL (70-100); HDL CHOLESTEROL 56 mg/dL; LDL CHOLESTEROL,CALCULATED 95 mg/dL; LDL/HDL RATIO 1.7 (<4.4); POTASSIUM 4.3 mmol/L (3.5-5.0); SODIUM 140 mmol/L (135-145); TRIGLYCERIDES 185 mg/dL; VLDL CHOLESTEROL 37 mg/dL
[2022-10-30 14:08] LABS: ESTIMATED AVERAGE GLUCOSE 183 mg/dL (70-100)
== END 2022-10-30 07:57 | disposition home or self-care (01) ==
LOC: LAB.N 07:56
PROVIDERS: ATTEND Nurse Practitioner Family
DX: E11.8 Type 2 diabetes mellitus with unspecified complications (principal); E78.5 Hyperlipidemia, unspecified; E66.9 Obesity, unspecified
CPT/HCPCS: 36415; 80048; 80061; 83036; 83721

== ENCOUNTER 2022-11-03 09:17 | Outpatient (CLI) | payer MEDICARE, OTHER ==
--- NOTE | 2022-11-03 09:43 | Sleep Patient Instructions ---
Sleep Center Visit Summary - Patient Visit Information Reason for Visit: Annual visit for PAP therapy - Patient Instructions Additional Instructions: You will continue with CPAP therapy with pressure set at 5-11 cmH2O. A supply prescription will be updated with your DME. We encourage you to continue to try to lose weight. Please follow up with the sleep care office in 1 year. - Clinic Information Contact: [facility] [address] [place] [address] [email or web address] T: [phone]
--- NOTE | 2022-11-03 09:46 | SLEEP CARE CONSULTATION ---
Information from patient questionnaire entered by Sydni Herman. I have reviewed and concur with the information entered by Sydni Herman. This document represents the service I personally performed and the decisions made by me, Tahmina Lovell ARNP. History of Present Illness Service Date and Time: 11/03/2022 09 Previous diagnosis: Very Severe, Obstructive Sleep Apnea-Hypopnea Syndrome AHI: 68.9 (in 2016)(48.6 in 2005) Reason for follow up: annual (LAST SEEN 10/2021) Equipment type: CPAP (RESMED) Equipment obtained from: [facility] (getting supplies as needed) Mask style: Nasal Backup mask available: Yes (old mask) Last cushion change: 2 weeks ago Prior sleep studies: Yes Year and Where: 2005 and 2015 - [facility] Type of Sleep Study: Polysomnography HPI additional information: ZAKIYA JONES was diagnosed to have very severe, AHI 68.9, obstructive sleep apnea-hypopnea syndrome and returned today for BIPAP therapy annual follow-up. Sleep Study - Results Type of Sleep Study: Polysomnography Prior sleep studies: Yes Year and Where: 2005 and 2015 - [facility] CPAP Compliance Data - Data Reviewed with Patient Average duration of nightly device use: 6 HRS 21 MIN Compliance rate %: 83 (05/05/22-10/31/22; 154/180 days used) Current pressure setting (cmH2O): 5-11 Average residual AHI: 2.3 Central apnea: 0.1 Obstructive apnea: 2.1 Average large leak: 0.1 L/min Compliance data discussion: She has a travel mini CPAP that she uses when traveling. Subjective Missed days of use due to: reports: travel (two cruises, used her travel CPAP) Patient concerns: denies: aerophagia, mask discomfort, air blowing in eyes, mask leak noise, condensation in mask/hose, nasal congestion, dry mouth, nose, throat, epistaxis Observed to snore while using device: No Current pressure setting perceived as: comfortable On therapy, patient: reports: sleeping better, awakening more refreshed, being more awake and alert during the day, more rested overall. denies: drowsiness while driving Initial Ainsworth Sleepiness Scale score: 8 (in 2015) Current Ainsworth Sleepiness Scale score: 2 (11/03/22) Allergies and Home Medications Known drug allergies: Yes (as listed) Drug allergies reviewed: Yes Home medication list reviewed: Yes (slight increase of sertraline dose) Allergy and home medication list: Allergies aspirin Adverse Reaction (Verified 11/02/22 09:21) Cramps lisinopril Adverse Reaction (Verified 11/02/22 09:21) cough metformin Adverse Reaction (Verified 11/02/22 09:21) diarrhea venom-honey bee [bee venom (honey bee)] Adverse Reaction (Verified 11/02/22 09:21) Rash Review of Systems Review of systems same as previous: No (mammogram found fibrous tissue; she found lump) Physical Exam Vital signs obtained and entered by: SYDNI Chua MA Blood Pressure: 128/78 (LEFT ARM) Cuff size: long Heart Rate: 76 O2 Saturation: 94 Height: 4 ft 11 in Weight: 193 lb 12.8 oz (shoes/clothes on) Weight change since last visit: 9 lbs gain Body Mass Index: 39.1 BMI Classification: Obese Impression and Plan 1. Obstructive Sleep Apnea-Hypopnea Syndrome, very severe, with good treatment compliance and good apnea control. On CPAP therapy, the patient has better sleep quality and is more rested overall. Patient uses a travel mini CPAP when she goes on vacation. She otherwise has good compliance with her CPAP use at home. Patient has significant improvement of their sleep apnea and is satisfied with current CPAP therapy. Patient denies problems with oral dryness, nasal congestion, epistaxis, skin irritation or aerophagia. Patient's apnea severity and rationale for treatment to reduce apnea, improve sleep quality and reduce cardiovascular and cerebrovascular events was reviewed. I also reviewed the benefit of consistent device use of CPAP for hypertension, diabetes and depression. 2. Obesity, unspecified. Currently patients BMI is 39.1. Obesity increases the risk of apnea, CPAP pressure requirements and overall health risks especially cardiovascular and diabetes. Thus patient is advised to try to lose weight. * Continue auto CPAP pressure at 5-11 cmH2O * Update supplies * Notify me if snoring with mask or feeling that the pressure is too much or too little * Attempt to lose weight * Call this office if any problems using CPAP * Return for follow up in 1 year, or sooner if concerns arise Counseling Topics: Spare mask, Weight loss health impact Visit Type: In Office Time Spent with Patient (minutes): 15 Provider Statement: I spent 100% of the Face to Face Visit with the patient with greater than 50% spent counseling the patient and coordination of care.
[2022-11-03 09:47] VITALS: BP 128/78
== END 2022-11-03 09:18 | disposition home or self-care (01) ==
LOC: SC 09:17
PROVIDERS: ATTEND Nurse Practitioner Family
DX: G47.33 Obstructive sleep apnea (adult) (pediatric) (principal); E66.9 Obesity, unspecified; Z68.39 Body mass index [BMI] 39.0-39.9, adult
CPT/HCPCS: 99212; G0463

== ENCOUNTER 2022-11-16 09:12 | Outpatient (CLI) | payer MEDICARE, OTHER ==
--- NOTE | 2022-11-17 12:09 | Mammography Report ---
BILATERAL DIGITAL DIAGNOSTIC MAMMOGRAM 3D/2D: 11/16/2022 CLINICAL: Palpable left breast lump. Comparison is made to exams dated: 08/08/2022 mammogram, 08/07/2021 mammogram - [facility], 03/04/20 20 mammogram, 02/23/2020 mammogram, and 01/29/2020 mammogram - [facility]. Both breasts are heterogeneously dense, which may obscure small masses (category c / 51-75% glandular tissue). There is a benign lymph node in the right breast. There also are benign calcifications in both breas ts. Additionally, there are benign vascular calcifications in both breasts. Additionally, there als o is a biopsy clip in the right breast. There is a new focal asymmetry in the left breast central to the nipple anterior depth. This correla edison as palpated. There also is a new mass in the left breast posterior depth superior region seen on the mediolateral oblique view only. No other significant masses, calcifications, or other findings are seen in either breast. IMPRESSION: INCOMPLETE: NEEDS ADDITIONAL IMAGING EVALUATION The new focal asymmetry in the left breast central to the nipple anterior depth is indeterminate. An ultrasound is recommended. The new mass in the left breast posterior depth superior region seen on the mediolateral oblique view only is indeterminate. An ultrasound is recommended. Based on the Tyrer Cuzick model (a risk assessment model) the patients lifetime risk is 6.6% and her 10 year risk is 4.5%. According to the ACR, ACS, and NCCN guidelines, an annual breast MRI exam keiko g with mammogram is recommended if the patients lifetime risk is 20% or greater. This exam was interpreted at Station ID: [id number]. NOTE: For mammograms, a report in lay terms will be sent to the patient. Approximately 15% of breast malignancies will not be visualized mammographically. In the management of a palpable breast mass, a negative mammogram must not discourage biopsy of a clinically suspicious lesion. Electronically Signed By: Andrés Horton M.D. lc/:11/17/2022 11:47:18 Entry: - 11/17/2022 11:47:18 ACR BI-RADS Category 0: Incomplete 3340F PARENCHYMAL PATTERN: (D) - The breast(s) demonstrate(s) heterogeneously dense fibroglandular parlynnette styles. BI-RADS CATEGORY: (0) - 0 Ultrasound [id number] Immediate follow-up LATERALITY: (B)
--- NOTE | 2022-11-17 12:09 | Ultrasound Report ---
LIMITED ULTRASOUND OF LEFT BREAST AND AXILLA: 11/16/2022 CLINICAL: Palpable left breast lump. Palpable left axilla lump. Comparison is made to exams dated: 11/16/2022 mammogram - [facility], 08/08/2022 sarahy mogram, 08/07/2021 mammogram - [facility], 03/04/2020 ultrasound biopsy, 03/04/2020 mammogram, and ultrasound - [facility]. Color flow and real-time ultrasound of the left breast 9-12 o'clock, retroareolar, and axilla region s were performed. Hidalgo scale images of the real-time examination were reviewed. There is a 4.5 cm x 4.7 cm x 2.6 cm irregular mass with a spiculated margin in the left breast at 11 o'clock in the retroareolar region. This correlates as palpated and with mammography findings. There also is a 3.3 cm x 2.1 cm x 2.4 cm enlarged left axillary lymph node. Other probably abnormal nodes are present. IMPRESSION: HIGHLY SUGGESTIVE OF MALIGNANCY The 4.5 cm x 4.7 cm x 2.6 cm irregular mass in the left breast at 11 o'clock in the retroareolar li on is highly suggestive of malignancy. An ultrasound guided biopsy is recommended. The 3.3 cm x 2.1 cm x 2.4 cm enlarged left axillary lymph node is highly suggestive of malignancy. A n ultrasound guided biopsy is recommended. This exam was interpreted at Station ID: [id number]. Electronically Signed By: Andrés Horton M.D. lc/:11/17/2022 11:50:58 Entry: - 11/17/2022 11:50:58 Ultrasound BI-RADS: 5 Highly suggestive of malignancy BI-RADS CATEGORY: (5) - 5 RECOMMENDATION: (ADDMAM) - Recommend additional mammographic views. [id number] Immediate follow-up LATERALITY: (R)
== END 2022-11-16 09:13 | disposition home or self-care (01) ==
LOC: DI 09:12
PROVIDERS: ATTEND Nurse Practitioner Family
DX: R59.0 Localized enlarged lymph nodes (principal); N63.22 Unspecified lump in the left breast, upper inner quadrant

== ENCOUNTER 2022-11-24 09:35 | Outpatient (CLI) | payer MEDICARE, OTHER ==
[2022-11-24] MEDS ORDERED: LIDOCAINE 1%-EPI 1:100000 20 ML MDV ONE (10:03)
[2022-11-24] MEDS ORDERED: LIDOCAINE-MPF 1% 5 ML VIAL ONE (10:04)
[2022-11-24] MEDS ORDERED: LIDOCAINE-MPF 1% 5 ML VIAL TD ONE (17:49)
[2022-11-24] MEDS ORDERED: LIDOCAINE 1%-EPI 1:100000 20 ML MDV SUBQ ONE (20:14)
--- NOTE | 2022-11-25 16:17 | Mammography Report ---
UNILATERAL LEFT DIGITAL DIAGNOSTIC MAMMOGRAM WITH AXILLARY TAIL POST-PROCEDURE IMAGING FOR MARKER MIRZA CEMENT: 11/24/2022 CLINICAL: Post left breast ultrasound biopsy clip placement imaging. Comparison is made to exams dated: 11/16/2022 mammogram - [facility], 08/08/2022 [facility], 08/07/2021 mammogram - [facility], 03/04/2020 mammogram, 02/23/2020 mammogram, and 01/29/2020 mammogram - [facility]. The left breast is heterogeneously dense, which may obscure small masses (category c / 51-75% glandul ar tissue). There is a marker clip in the appropriate position in the left breast at 12 o'clock in the retroareol ar region. This marker clip placement is at the biopsy site. This correlates with ultrasound findin gs and the biopsy. There also is a marker clip in the appropriate position in the left axilla. This marker clip placeme nt is at the biopsy site. This correlates with ultrasound findings and the biopsy. IMPRESSION: POST PROCEDURE MAMMOGRAM FOR MARKER PLACEMENT There was a successful marker clip placement in the left breast at 12 o'clock in the retroareolar reg ion. There was a successful marker clip placement in the left axilla. Based on the Tyrer Cuzick model (a risk assessment model) the patients lifetime risk is 6.6% and her 10 year risk is 4.5%. According to the ACR, ACS, and NCCN guidelines, an annual breast MRI exam keiko g with mammogram is recommended if the patients lifetime risk is 20% or greater. This exam was interpreted at Station ID: [id number]. NOTE: For mammograms, a report in lay terms will be sent to the patient. Approximately 15% of breast malignancies will not be visualized mammographically. In the management of a palpable breast mass, a negative mammogram must not discourage biopsy of a clinically suspicious lesion. Electronically Signed By: Irineo Duarn M.D. aty/:11/24/2022 19:34:34 ACR BI-RADS Category Post-procedure mammogram for marker placement PARENCHYMAL PATTERN: (D) - The breast(s) demonstrate(s) heterogeneously dense fibroglandular parenchy ma. BI-RADS CATEGORY: () - Unspecified - other recall n/a LATERALITY: (B)
--- NOTE | 2022-11-30 15:48 | Ultrasound Report ---
ULTRASOUND GUIDED BIOPSY LEFT BREAST WITH MARKING DEVICE INSERTED AND POST MAMMOGRAPHIC IMAGIN2022 CLINICAL: Left axillary node biopsy. PATIENT CONSENT: Risks (minor bleeding, infection, vasovagal reaction and repeat procedure), benefits and alternatives were explained to the patient and written informed consent was obtained. Correlation is made to exams dated: 11/24/2022 mammogram, 11/16/2022 ultrasound, 11/16/2022 mammogram - [facility], and 08/08/2022 mammogram - [facility]. An ultrasound guided biopsy using real-time ultrasound was performed for the oval lymph node located in the left axilla. This was described on the previous mammography and ultrasound reports. The skin was prepped in the usual manner. Local anesthetic was administered to the access site. The abnormality was approached from the lateral aspect. A 16 gauge biopsy needle was placed adjacent to the abnormality under ultrasound guidance. Once the needle was documented to be in the correct loca tion, specimens were obtained using the Marquee biopsy device. A clip was inserted into the biopsy cavity. A sterile dressing was applied to the access site. Post procedure mammographic imaging demonstrates the location device at the targeted area. The specimen was sent to the laboratory for pathological analysis. IMPRESSION: ULTRASOUND GUIDED BIOPSY MALIGNANT Ultrasound guided biopsy of the lymph node in the left axilla was successful. Pathology indicates malignant lymphoma. Pathology results are concordant with imaging findings. A oncologic consultation is recommended. This exam was interpreted at Station ID: [id number]. Irineo chopra,slc/:11/30/2022 11:45:32 BI-RADS CATEGORY: () - Unspecified - other recall n/a LATERALITY: (B)
--- NOTE | 2022-11-30 15:48 | Ultrasound Report ---
ULTRASOUND GUIDED BIOPSY LEFT BREAST USING VACUUM DEVICE WITH MARKING DEVICE INSERTED AND POST MAMMOG RAPHIC IMAGIN11/24/2022 CLINICAL: Left breast mass. PATIENT CONSENT: Risks (minor bleeding, infection, vasovagal reaction and repeat procedure), benefits and alternatives were explained to the patient and written informed consent was obtained. Correlation is made to exams dated: 11/16/2022 ultrasound, 11/16/2022 mammogram - [facility], 08/08/2022 mammogram, and 08/07/2021 mammogram - [facility]. An ultrasound guided biopsy using real-time ultrasound was performed for the mass located in the left breast at 11 o'clock in the retroareolar region. This was described on the previous mammography and ultrasound reports. The skin was prepped in the usual manner. Local anesthetic was administered to the access site. A s kin tahmina was made in the breast. The abnormality was approached from the lateral aspect. A 13 gauge biopsy needle was placed adjacent to the abnormality under ultrasound guidance. Once the needle was documented to be in the correct location, six specimens were obtained using the Mammotome biopsy sys tem. A clip was inserted into the biopsy cavity. Post procedure mammographic imaging demonstrates the loc ation device at the targeted area. The specimens were sent to the laboratory for pathological analys is. IMPRESSION: ULTRASOUND GUIDED BIOPSY MALIGNANT Ultrasound guided biopsy of the mass in the left breast at 11 o'clock in the retroareolar region was successful. Pathology indicates malignant lymphoma. Pathology results are concordant with imaging findings. A oncologic consultation is recommended. This exam was interpreted at Station ID: [id number]. Irineo mckenzie,slc/:11/30/2022 11:43:31 BI-RADS CATEGORY: () - Unspecified - other recall n/a LATERALITY: (B)
== END 2022-11-24 09:36 | disposition home or self-care (01) ==
LOC: DI 09:35
PROVIDERS: ATTEND Nurse Practitioner Family
DX: C83.34 Diffuse large B-cell lymphoma, lymph nodes of axilla and upper limb (principal); C83.39 Diffuse large B-cell lymphoma, extranodal and solid organ sites
CPT/HCPCS: 19083; 38505

== ENCOUNTER 2023-03-03 09:10 | Outpatient (CLI) | payer MEDICARE, OTHER ==
[2023-03-05 15:34] LABS: ESTIMATED AVERAGE GLUCOSE 223 mg/dL (70-100); HEMOGLOBIN A1c% 9.4 % (4.27-6.07)
== END 2023-03-03 09:11 | disposition home or self-care (01) ==
LOC: LAB 09:10
PROVIDERS: ATTEND Nurse Practitioner Family
DX: E11.8 Type 2 diabetes mellitus with unspecified complications (principal)
CPT/HCPCS: 36415; 83036

== ENCOUNTER 2023-04-30 15:37 | Emergency (ER) | payer MEDICARE, OTHER ==
--- NOTE | 2023-04-30 16:19 | ED Physician Documentation ---
PD HPI NVD - Stated complaint Stated Complaint: N/V/D/NO APPETITE - Chief complaint Chief Complaint: Abd Pain - History obtained from History obtained from: Patient, Family, Other (Oncologist Dr. Foy) - Additonal information Additional information: 72-year-old female with history of hypertension, high cholesterol, heart murmur, asthma, type 2 diabetes, osteoarthritis presents to the emergency department today from the oncology clinic for ongoing nausea vomiting diarrhea. Patient is currently under the care of Dr. Daughetry for lymphoma she has completed a total of 6 courses of chemo last chemo session was on 04/16/2023 since then she has been having persistent nausea vomiting diarrhea. Patient denies any fevers or chills at home she reports that she has been having more than 5 bowel movements a day today she took loperamide and says that she has not had a bowel movement since then. She does remember what antinausea medication she has been taking at home but feels very deconditioned and weak and feels like she cannot get enough fluids in. 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, Hysterectomy HEENT: Other - Present Medications Home Medications: Ambulatory Orders Medication Instructions Recorded Confirmed Aspirin [Aspirin EC] 81 mg PO DAILY 11/15/14 04/30/23 Glipizide [Glipizide Xl] 10 mg PO BID 11/15/14 04/30/23 Irbesartan [Avapro] 150 mg PO DAILY 11/15/14 04/30/23 Holland-3 Fatty Acids/Fish Oil [Fish 1,000 mg PO DAILY 11/15/14 04/30/23 Oil 1,000 mg Capsule] Simvastatin 20 mg PO DAILY 11/15/14 04/30/23 atenoloL [Atenolol] 100 mg PO DAILY 11/15/14 04/30/23 Ascorbic Acid [Vitamin C] 1,000 mg PO DAILY 12/26/14 04/30/23 Albuterol Sulfate [Proair Hfa 1 - 2 puffs INH Q4H PRN 04/17/19 04/30/23 Inhaler] Calcium Carbonate [Calcium] 600 mg PO BID 04/17/19 04/30/23 Montelukast Sodium 10 mg PO DAILY 04/17/19 04/30/23 Omeprazole 20 mg PO DAILY 04/17/19 04/30/23 Apple Cider Vinegar 1,200 mg PO QPM 06/26/19 04/30/23 Mv,Tucker,Iron,Mn/Folic Acid/Chol 1 cap PO DAILY 06/26/19 04/30/23 [Hair, Skin and Nails Capsule] Sitagliptin Phos/Metformin HCl 1 tab PO DAILY 06/26/19 04/30/23 [Janumet Xr 50-1,000 mg Tablet] Sertraline [Zoloft] See Rx Instructions .ROUTE .COMPLEX 11/03/22 04/30/23 Albuterol Sulf [Ventolin Hfa 1 - 2 puffs INH Q4HR PRN 12/18/22 04/30/23 Inhaler] Biotin 5,000 mcg PO DAILY 12/18/22 04/30/23 Cholecalciferol (Vitamin D3) 50 mcg PO DAILY 12/18/22 04/30/23 [Vitamin D3] Fluticasone [Flonase] 1 sprays SIDDHARTHA BID PRN 12/18/22 04/30/23 Ondansetron [Ondansetron Odt] 8 mg PO Q8HR PRN #30 tab 12/18/22 04/30/23 Prochlorperazine [Compazine] 10 mg PO Q6H PRN #30 tablet 12/18/22 04/30/23 Ubidecarenone [Co Q-10] 300 mg PO DAILY 12/18/22 04/30/23 Vitamin B Complex [B-Complex] 1 each PO DAILY 12/18/22 04/30/23 Vitamin E (Dl,Tocopheryl Acet) 180 mg PO DAILY 12/18/22 04/30/23 [Vitamin E] Zinc Gluconate [Zinc] 50 mg PO DAILY 12/18/22 04/30/23 aMILoride [Midamor] 5 mg PO DAILY 12/18/22 04/30/23 predniSONE [Prednisone] 100 mg PO UD #12 tablet 12/21/22 04/30/23 Insulin NPH Human [HumuLIN N] 30 units SUBQ UD 01/01/23 04/30/23 Lidocaine/Prilocain 2.5% Cream 1 each TP PRN PRN 01/04/23 04/30/23 [Emla 2.5% Cream] Diphenoxylate/Atropine [Lomotil] 1 each PO Q6HR PRN 04/16/23 04/30/23 Ciprofloxacin [Cipro] 500 mg PO Q12H 6 Days #24 tablet 04/30/23 - Allergies Allergies/Adverse Reactions: Allergies Allergy/AdvReac Type Severity Reaction Status Date / Time aspirin AdvReac Cramps Verified 12/18/22 09:56 lisinopril AdvReac cough Verified 12/18/22 09:56 metformin AdvReac diarrhea Verified 12/18/22 09:56 venom-honey bee AdvReac Rash Verified 12/18/22 09:56 [bee venom (honey bee)] - Social History Does the pt smoke?: No Smoking Status: Never smoker PD ED PE NORMAL - Vitals Vital signs reviewed: Yes - General General: Alert and oriented X 3 - HEENT HEENT: Atraumatic - Cardiac Cardiac: No: No murmur - Respiratory Respiratory: No respiratory distress, Clear bilaterally - Abdomen Abdomen: Normal bowel sounds, Soft, Non tender - Neuro Neuro: Alert and oriented X 3 Results - Vitals Vitals: Vital Signs - 24 hr 04/30/23 04/30/23 04/30/23 15:43 15:47 17:47 Temperature 36.8 C 36.8 C 36.5 C Heart Rate 77 77 76 Respiratory 18 18 16 Rate Blood Pressure 121/55 L 121/55 L 120/60 O2 Saturation 96 96 98 04/30/23 19:00 Temperature 36.5 C Heart Rate 76 Respiratory 16 Rate Blood Pressure 120/60 O2 Saturation 98 Oxygen O2 Source Room air - EKG (time done) 1837 EKG releavant findings:: EKG personally interpreted by author of this note. Relevant findings are: Rate: Rate (enter#) (80) Rhythm: NSR [place]: Normal Intervals: Normal [place]. No: Prolonged QT QRS: Normal Ischemia: Normal ST segments Computer interpretation: Agree with computer - Labs Labs: Laboratory Tests 04/30/23 17:48 Nasal Adenovirus (PCR) NOT DETECTED Nasal B. parapertussis DNA (PCR) NOT DETECTED Nasal Coronavir 229E PCR NOT DETECTED Nasal Coronavir HKU1 PCR NOT DETECTED Nasal Coronavir NL63 PCR NOT DETECTED Nasal Coronavir OC43 PCR NOT DETECTED Nasal Enterovir/Rhinovir PCR NOT DETECTED Nasal Influenza B PCR NOT DETECTED Nasal Influenza A PCR NOT DETECTED Nasal Parainfluen 1 PCR NOT DETECTED Nasal Parainfluen 2 PCR NOT DETECTED Nasal Parainfluen 3 PCR NOT DETECTED Nasal Parainfluen 4 PCR NOT DETECTED Nasal RSV (PCR) NOT DETECTED Nasal B.pertussis DNA PCR NOT DETECTED Nasal C.pneumoniae (PCR) NOT DETECTED Siddhartha Human Metapneumo PCR NOT DETECTED Nasal M.pneumoniae (PCR) NOT DETECTED Nasal SARS-CoV-2 (PCR) NOT DETECTED PD Medical Decision Making - ED course ED course: 72-year-old female completed her sixth course of chemotherapy for lymphoma on 04/16. Since then she has been having persistent ongoing nausea vomiting diarrhea. Patient was sent to the emergency department from her oncologist . Labs were collected in clinic today patient does have a new WBC count according to patient's oncologist this is new for her, WBC 18.5, in regards to her chemistry her potassium is 3.3, glucose is 270. Given patient's white count as well as bandemia initiated one time dose of IV Flagyl and IV Ciproflaxacin. Patient adamantly declines to have a CT as it gives her diarrhea. Patient reports that this has been an issue she has been experiencing for years despite contrast or not attempted to reason with pt but she was adamant that she did not want a CT. Two sets of blood cx collected prior to initiation abx.Patient was able to tolerate p.o.'s without any difficulty she was able to eat 2 cups of pudding and reports that she feels like her appetite is actually getting better and coming back. Stool was sent off for further evaluation of C. difficile and other stool studies. Patient was informed that we would call her if her blood cultures or stool studies came back with anything positive. A prescription of ciprofloxacin was prescribed to the patient for an additional 6 days for total of 7-day antibiotic course of ciprofloxacin. She was told to follow-up with her oncologist sometime next week and was given strict return precautions when to report back to the emergency department. She had a potassium of 3.3 at clinic today potassium was replaced p.o. in the emergency department with 40 mill colons of potassium chloride. Patient reports that she is feeling significantly better she is safe for discharge she has Zofran and Compazine at home to help manage her nausea as well as loperamide to help manage her diarrhea. Departure - Departure Disposition: 01 Home, Self Care Clinical Impression: Enteritis, Bandemia Condition: Good Instructions: Nausea Vomit Control Prescriptions: Ciprofloxacin [Cipro] 500 mg PO Q12H 6 Days #24 tablet Comments: Thank you for trusting us with your care we have given you some IV fluids to help with your dehydration and sent your stool for further started there for evaluation of possible CHF or other possible bacterial infections. We have given you a one-time dose of IV Flagyl and IV ciprofloxacin here in the emergency department sent your blood for cultures and we will call you if they are positive. I sent ciprofloxacin to [facility] in [place] please pick this up first thing tomorrow morning you will take it twice a day for the next 6 days. Please come back to the emergency department if you are still unable to manage your nausea vomiting diarrhea at home. Try things such as protein shakes to help with increased calories and protein while keeping an eye on your blood sugar. Please follow-up with your oncologist next week for further evaluation of your enteritis (nausea/vomiting/diarrhea) and come back to the emergency department if you have any other concerning symptoms. Wishing you a speedy recovery Forms: PCP List
[2023-04-30] MEDS ORDERED: SODIUM CHLORIDE 0.9% 1,000 ML IV ONE (16:38)
[2023-04-30 17:55] VITALS: O2SAT 98
[2023-04-30] MEDS ORDERED: metroNIDAZOLE 500 MG/100 ML 500 MG/100 ML BAG IV SCH ×2 (18:30→19:00)
[2023-04-30] MEDS ORDERED: CIPROFLOXACIN 400 MG/200 ML 400 MG/200 ML BAG IV SCH ×2 (18:30→19:00)
[2023-04-30 18:46] LABS: B. PARAPERTUSSIS- RESP PCR PAN NOT DETECTED; B. PERTUSSIS- RESP PCR PANEL NOT DETECTED; C. PNEUMONIAE- RESP PCR PANEL NOT DETECTED; CORONAVIRUS 229E-RESP PCR NOT DETECTED; CORONAVIRUS HKU1-RESP PCR NOT DETECTED; CORONAVIRUS NL63-RESP PCR NOT DETECTED; CORONAVIRUS OC43-RESP PCR NOT DETECTED; HUMAN METAPNEUMOVIRUS NOT DETECTED; INFLUENZA A- RESP PCR PANEL NOT DETECTED; INFLUENZA B - RESP PCR PANEL NOT DETECTED; M. PNEUMONIAE- RESP PCR PANEL NOT DETECTED; PARAINFLUENZA VIRUS 1 NOT DETECTED; PARAINFLUENZA VIRUS 2 NOT DETECTED; PARAINFLUENZA VIRUS 3 NOT DETECTED; PARAINFLUENZA VIRUS 4 NOT DETECTED; RHINOVIRUS/ENTEROVIRUS NOT DETECTED; RSV- RESP PCR PANEL NOT DETECTED; SARS-CoV-2 -RESP PCR PANEL NOT DETECTED
[2023-04-30] MEDS ORDERED: POTASSIUM CHLORIDE 20 MEQ TABLET PO STA (19:34)
[2023-04-30 20:33] VITALS: BP 120/62
[2023-05-02 14:08] LABS: ADENOVIRUS F 40/41 Not Detected (Not Detected); ASTROVIRUS Not Detected (Not Detected); C DIFFICILE TOXIN A/B Not Detected (Not Detected); CAMPYLOBACTER Not Detected (Not Detected); CRYPTOSPORIDIUM Not Detected (Not Detected); CYCLOSPORA CAYETANENSIS Not Detected (Not Detected); ENTAMOEBA HISTOLYTICA Not Detected (Not Detected); ENTEROAGGREGATIVE E COLI Not Detected (Not Detected); ENTEROPATHOGENIC E COLI Not Detected (Not Detected); ENTEROTOXIGENIC E COLI Not Detected (Not Detected); GIARDIA LAMBLIA Not Detected (Not Detected); NOROVIRUS GI/GII Not Detected (Not Detected); PLESIOMONAS SHIGELLOIDES Not Detected (Not Detected); ROTAVIRUS A Not Detected (Not Detected); SALMONELLA Not Detected (Not Detected); SAPOVIRUS Not Detected (Not Detected); SHIGA-TOXIN-PRODUCING E COLI Not Detected (Not Detected); SHIGELLA/ENTEROINVASIVE E COLI Not Detected (Not Detected); VIBRIO Not Detected (Not Detected); VIBRIO CHOLERAE Not Detected (Not Detected); YERSINIA ENTEROCOLITICA Not Detected (Not Detected)
== END 2023-04-30 20:25 | disposition home or self-care (01) ==
LOC: ED 15:37
DX: K52.9 Noninfective gastroenteritis and colitis, unspecified (principal); D72.825 Bandemia; E87.6 Hypokalemia; E86.0 Dehydration; C85.90 Non-Hodgkin lymphoma, unspecified, unspecified site; Z79.899 Other long term (current) drug therapy
CPT/HCPCS: 36415; 87040; 87493; 87507; 87633; 93005; 96365; 96368; 99284

== ENCOUNTER 2023-06-24 13:00 | Outpatient (CLI) | payer MEDICARE, OTHER | END 2023-06-24 13:15 | disposition home or self-care (01) | LOC: LAB.N 13:00 | PROVIDERS: ATTEND Family Medicine | DX: R30.0 Dysuria (principal) | CPT/HCPCS: 87086 ==

== ENCOUNTER 2023-07-01 09:23 | Outpatient (CLI) | payer MEDICARE, OTHER ==
[2023-07-01 12:42] LABS: BUN - BLOOD UREA NITROGEN 20 mg/dL (6-20); CARBON DIOXIDE - CO2 27 mmol/L (21-32); CHLORIDE 102 mmol/L (101-111); CHOL/HDL RATIO 3.6 (<4.4); CHOLESTEROL 168 mg/dL; CREATININE 0.9 mg/dL (0.6-1.3); GFR - MDRD 62 (>89); GLUCOSE 162 mg/dL (74-104); HDL CHOLESTEROL 47 mg/dL; LDL CHOLESTEROL,CALCULATED 81 mg/dL; LDL/HDL RATIO 1.7 (<4.4); POTASSIUM 4.4 mmol/L (3.5-4.5); SODIUM 136 mmol/L (135-145); TRIGLYCERIDES 201 mg/dL (48-352); VLDL CHOLESTEROL 40 mg/dL
[2023-07-01 12:52] LABS: ESTIMATED AVERAGE GLUCOSE 140 mg/dL (70-100); HEMOGLOBIN A1c% 6.5 % (4.27-6.07)
[2023-07-01 13:01] LABS: THYROID STIMULATING HORMONE 2.51 uIU/mL (0.34-5.60)
== END 2023-07-01 09:24 | disposition home or self-care (01) ==
LOC: LAB.N 09:23
PROVIDERS: ATTEND Nurse Practitioner Family
DX: E11.8 Type 2 diabetes mellitus with unspecified complications (principal); E78.5 Hyperlipidemia, unspecified; I10 Essential (primary) hypertension
CPT/HCPCS: 36415; 80048; 80061; 82043; 82570; 83036; 83721; 84443

== ENCOUNTER 2023-11-02 08:44 | Outpatient (CLI) | payer MEDICARE, OTHER ==
--- NOTE | 2023-11-02 09:53 | Sleep Patient Instructions ---
Sleep Center Visit Summary - Patient Visit Information Reason for Visit: Annual follow-up - Patient Instructions Additional Instructions: You will continue with CPAP therapy with pressure set at 5-11 cmH2O. A supply prescription will be updated with your DME. A Referral for Inspire implant evaluation has been ordered and please let us know of any way we can help. We encourage you to continue to try to lose weight. Please follow up with the sleep care office in 1 year. - Clinic Information Contact: [facility] [address] [place] [id number] [email or web address] T: [phone]
--- NOTE | 2023-11-02 09:57 | SLEEP CARE CONSULTATION ---
Information from patient questionnaire entered by Sydni Herman. I have reviewed and concur with the information entered by Sydni Herman. This document represents the service I personally performed and the decisions made by me, Tahmina Lovell ARNP. History of Present Illness Service Date and Time: 11/02/2023 0844 Previous diagnosis: Very Severe, Obstructive Sleep Apnea-Hypopnea Syndrome AHI: 68.9 (in 2016)(48.6 in 2005) Reason for follow up: annual (LAST SEEN 10/2022) Equipment type: CPAP (RESMED Airsense 11, s/u 08/2021) Equipment obtained from: [employer] (getting supplies as needed) Mask style: Nasal Backup mask available: Yes Last cushion change: last week Prior sleep [facility]: Yes [facility] and [facility] Type of Sleep Study: Polysomnography HPI additional information: ZAKIYA JONES was diagnosed to have very severe, AHI 68.9, obstructive sleep apnea-hypopnea syndrome and returned today for CPAP therapy annual follow-up. Sleep Study - Results Type of Sleep Study: Polysomnography Prior sleep studies: Yes [facility] and [facility] Compliance Data - Data Reviewed with Patient Average duration of nightly device use: 6 HRS 34 MINS Compliance rate %: 82 (10/21/22-10/20/23; 329/365 days used) Current pressure setting (cmH2O): 5-11 Average residual AHI: 2.2 Central apnea: 0.2 Obstructive apnea: 1.8 Hypopnea: 0.1 Average large leak: 0.7 L/min Compliance data discussion: She has a [employer]err travel CPAP she uses when traveling. Anytime she is not using her regular CPAP, she is using her travel CPAP. Subjective Missed days of use due to: reports: travel (using her travel CPAP) Patient concerns: reports: mask discomfort, dry mouth, nose, throat (occasional dry mouth). denies: aerophagia, air blowing in eyes, mask leak noise, condensation in mask/hose, nasal congestion, epistaxis Observed to snore while using device: No Current pressure setting perceived as: comfortable On therapy, patient: reports: sleeping better, awakening more refreshed, being more awake and alert during the day, more rested overall. denies: drowsiness while driving Initial [place] Sleepiness Scale score: 8 (in 2016) Current [place] Sleepiness Scale score: 3 Allergies and Home Medications Known drug allergies: Yes (as listed) Drug allergies reviewed: Yes Home medication list reviewed: Yes (eye drops (for cataract surgery)) Allergy and home medication list: Allergies aspirin Adverse Reaction (Verified 10/29/23 10:32) Cramps lisinopril Adverse Reaction (Verified 10/29/23 10:32) cough metformin Adverse Reaction (Verified 10/29/23 10:32) diarrhea venom-honey bee [bee venom (honey bee)] Adverse Reaction (Verified 10/29/23 10:32) Rash Review of Systems Review of systems same as previous: No (Chemotherapy for Non-Hodgkins lymphoma Apr 16, 2023; vanessa cataract sx, 2023) Physical Exam Vital signs obtained and entered by: TAHMINA ANN Blood Pressure: 150/73 Cuff size: long (right arm) Heart Rate: 70 O2 Saturation: 99 Height: 4 ft 11.5 in Weight: 167 lb 12.8 oz Weight change since last visit: 26 lb loss Body Mass Index: 33.3 BMI Classification: Obese Impression and Plan 1. Obstructive Sleep Apnea-Hypopnea Syndrome, very severe, with good treatment compliance and good apnea control. On CPAP therapy, the patient has better sleep quality and is more rested overall. Patient has significant improvement of her sleep apnea and is satisfied with current CPAP therapy. She uses her travel CPAP when traveling and she does travel a lot. She had questions about the inspire implant therapy for sleep apnea. She feels this may be more convenient and traveling with a CPAP. She requested a referral. Patient informed that they would have to qualify for this type of therapy. A referral is needed for an ENT specialist who would evaluate if Inspire therapy is indeed right for them. Qualifications to be evaluated for Inspire therapy include a previous diagnosis of moderate to severe obstructive sleep apnea. They must also have tried, failed or have been unable to tolerate CPAP treatment. They should also have a BMI of 32 or less and do not have any other active implantable devices present (like a pacemaker). Patient will need to undergo a sleep endoscopy where they are put under light sedation and the airway is examined by an endoscope to determine the cause of their sleep apnea. If it is determined that Inspire therapy is right for them than they may proceed to implantation. Patient's apnea severity and rationale for treatment to reduce apnea, improve sleep quality and reduce cardiovascular and cerebrovascular events was reviewed. I also reviewed the benefit of consistent device use of CPAP for hypertension, diabetes, depression. 2. Obesity, unspecified. Currently patients BMI is 33.3. She lost weight when on chemotherapy for her cancer. Obesity increases the risk of apnea, CPAP pressure requirements and overall health risks especially cardiovascular and diabetes. Thus patient is advised to continue to try to lose weight. * Continue auto CPAP pressure at 5-11 cmH2O * Referral for Inspire therapy * Update supply prescription * Notify me if snoring with mask or feeling that the pressure is too much or too little * Attempt to lose weight * Call this office if any problems using CPAP * Return for follow up in 12 months, or sooner if concerns arise Counseling Topics: Spare mask, Weight loss health impact Prescriptions: Device supplies, Other (Referral for Inspire therapy) Follow up with Sleep Care in: 1 year Visit Type: In Office Time Spent with Patient (minutes): 25 Provider Statement: I spent 100% of the Face to Face Visit with the patient with greater than 50% spent counseling the patient and coordination of care.
[2023-11-02 10:17] VITALS: BP 150/73; O2SAT 99
== END 2023-11-02 08:45 | disposition home or self-care (01) ==
LOC: SC 08:44
PROVIDERS: ATTEND Nurse Practitioner Family
DX: G47.33 Obstructive sleep apnea (adult) (pediatric) (principal); E66.9 Obesity, unspecified; Z68.33 Body mass index [BMI] 33.0-33.9, adult
CPT/HCPCS: 99213; G0463; 99212

== ENCOUNTER 2023-12-21 11:19 | Outpatient (CLI) | payer MEDICARE, OTHER ==
[2023-12-21 17:51] LABS: BASOPHILS % (AUTO) 0.6 %; EOSINOPHILS # (AUTO) 0.4 10^3/uL (0.0-0.7); EOSINOPHILS % (AUTO) 8.5 %; HCT - HEMATOCRIT 37.9 % (37.0-47.0); HGB - HEMOGLOBIN 11.7 g/dL (12.0-16.0); LYMPHOCYTES # (AUTO) 1.1 10^3/uL (1.5-3.5); LYMPHOCYTES % (AUTO) 22.5 %; MEAN CORPUSCULAR HEMOGLOBIN 21.5 pg (27.0-31.0); MEAN CORPUSCULAR HGB CONC 30.9 g/dL (32.0-36.0); MEAN CORPUSCULAR VOLUME 69.7 fL (81.0-99.0); MONOCYTES # (AUTO) 0.5 10^3/uL (0.0-1.0); MONOCYTES % (AUTO) 9.6 %; NEUTROPHILS # (AUTO) 2.8 10^3/uL (1.5-6.6); NEUTROPHILS % (AUTO) 58.4 %; PLT - PLATELET COUNT 161 10^3/uL (130-450); RED BLOOD COUNT 5.44 10^6/uL (4.20-5.40); RED CELL DISTRIBUTION WIDTH 15.7 % (12.0-15.0); WHITE BLOOD COUNT 4.7 x10^3/uL (4.8-10.8)
[2023-12-21 17:56] LABS: SLIDE REVIEW? Indicated
[2023-12-21 18:15] LABS: CALCIUM 9.2 mg/dL (8.5-10.3); CREATININE 0.6 mg/dL (0.6-1.3); POTASSIUM 3.7 mmol/L (3.5-4.5)
[2023-12-21 18:21] LABS: PLATELET ESTIMATE, MANUAL NORMAL (130-450,000) (NORMAL); PLATELET MORPHOLOGY NORMAL APPEARANCE (NORMAL)
[2023-12-21 20:57] LABS: ESTIMATED AVERAGE GLUCOSE 140 mg/dL (70-100); HEMOGLOBIN A1c% 6.5 % (4.27-6.07)
== END 2023-12-21 11:20 | disposition home or self-care (01) ==
LOC: LAB.N 11:19
PROVIDERS: ATTEND Nurse Practitioner Family
DX: E11.9 Type 2 diabetes mellitus without complications (principal); Z79.899 Other long term (current) drug therapy
CPT/HCPCS: 36415; 80048; 82607; 82746; 83036; 85025

== ENCOUNTER 2024-01-08 09:18 | Outpatient (CLI) | payer MEDICARE, OTHER | END 2024-01-08 09:19 | disposition home or self-care (01) | LOC: DI 09:18 | PROVIDERS: ATTEND Nurse Practitioner Family | DX: I34.0 Nonrheumatic mitral (valve) insufficiency (principal); R01.1 Cardiac murmur, unspecified; I10 Essential (primary) hypertension; E11.9 Type 2 diabetes mellitus without complications | CPT/HCPCS: 93307 ==